=== PATIENT | male | born 1950 | race Caucasian/White ===

== ENCOUNTER 2021-08-13 07:19 | Inpatient (IN) | payer OTHER, BC ==
[2021-08-13 07:29] VITALS: BMI 26.9
[2021-08-13] MEDS ORDERED: ALBUTEROL SO4 2.5/IPRATROPIUM 0.5 INH SOL 3 ML VIAL.NEB. NEB ONE (07:34)
[2021-08-13 08:49] LABS: VENOUS BASE EXCESS -4.5 mmol/L (-2-2); VENOUS O2 SATURATION 77.7 % (70-80); VENOUS PCO2 39.9 mmHg (38-52); VENOUS PH 7.338 (7.310-7.410)
[2021-08-13 08:56] LABS: BASO % 1.2 % (0-2.0); HEMATOCRIT 31.9 % (35.4-49); HEMOGLOBIN 10.3 GM/dL (11.7-16.9); LYMPH % 7.3 % (8-40); MCHC 32.1 g/dl (32.0-35.9); MEAN CELL VOLUME 84.1 fl (80-96); MEAN PLT VOLUME 8.5 fl (7.5-11.1); MONO % 4.9 % (3.8-10.2); NEUT % 85.6 % (42.8-82.8); PLATELET COUNT 399 10^3/uL (134-434); RDW 16.9 % (11.9-15.9); WHITE BLOOD COUNT 11.5 K/mm3 (4.0-10.0)
[2021-08-13 09:06] LABS: CHLORIDE 96 mmol/L (98-107); SODIUM 128 mmol/L (136-145)
[2021-08-13 09:11] LABS: ALBUMIN 3.8 g/dl (3.4-5.0); ANION GAP 11 MMOL/L (8-16); BLOOD UREA NITROGEN 14.2 mg/dL (7-18); CALCIUM 9.1 mg/dL (8.5-10.1); CO2 22 mmol/L (21-32); GLUCOSE,RANDOM 132 mg/dL (74-106)
[2021-08-13 09:14] LABS: CREATININE 1.2 mg/dL (0.55-1.3); SGOT/AST 23 U/L (15-37); SGPT/ALT 24 U/L (13-61)
[2021-08-13 09:16] LABS: BILIRUBIN,TOTAL 0.6 mg/dL (0.2-1); TOT PROT 7.6 g/dl (6.4-8.2)
[2021-08-13 09:17] LABS: ALK PHOS 103 U/L (45-117)
[2021-08-13] MEDS ORDERED: AZITHROMYCIN IVPB 500 MG in DEXTROSE 5%-WATER - 250 ML IVPB ONE (09:19)
[2021-08-13] MEDS ORDERED: CEFTRIAXONE 1,000 MG in DEXTROSE 5%-WATER - 50 ML IVPB ONE (09:19)
[2021-08-13 09:20] LABS: N-TERMINAL BNP 3982.9 pg/ml (5-125)
[2021-08-13] MEDS ORDERED: CEFTRIAXONE 1 GM/50 ML BAG ONE (09:24)
[2021-08-13] MEDS ORDERED: AZITHROMYCIN IVPB 500 MG/250 ML BAG IVPB ONE (09:25)
[2021-08-13] MEDS ORDERED: ALBUTEROL SO4 0.083% IH SOL 2.5 MG/3 ML VIAL.NEB. NEB ONE ×2 (10:42→11:40)
[2021-08-13] MEDS ORDERED: METOPROLOL TARTRATE 50 MG TABLET (FP) PO SCH ×3 (18:50→22:00)
[2021-08-13] MEDS: METOPROLOL TARTRATE 25 MG TABLET (FP) PO SCH (20:23)
[2021-08-13] MEDS: ALBUTEROL SO4 0.083% IH SOL 2.5 MG/3 ML VIAL.NEB. NEB PRN (20:46)
[2021-08-13] MEDS: ATORVASTATIN CA 20 MG TABLET (FP) PO SCH (21:16)
[2021-08-13] MEDS: APIXABAN 5 MG TABLET PO SCH (21:16)
[2021-08-14] MEDS: methylPREDNISolone NA SUCC 40 MG/1 ML VIAL IVPUSH SCH ×3 (02:09→17:24)
[2021-08-14 07:28] LABS: CHLORIDE 96 mmol/L (98-107); SODIUM 129 mmol/L (136-145)
[2021-08-14 07:31] LABS: ALBUMIN 3.6 g/dl (3.4-5.0); ANION GAP 10 MMOL/L (8-16); BLOOD UREA NITROGEN 18.7 mg/dL (7-18); CALCIUM 9.2 mg/dL (8.5-10.1); CO2 22 mmol/L (21-32)
[2021-08-14 07:32] LABS: GLUCOSE,RANDOM 143 mg/dL (74-106)
[2021-08-14 07:34] LABS: CREATININE 1.1 mg/dL (0.55-1.3)
[2021-08-14 07:35] LABS: SGOT/AST 19 U/L (15-37); SGPT/ALT 19 U/L (13-61)
[2021-08-14 07:36] LABS: BILIRUBIN,TOTAL 0.6 mg/dL (0.2-1)
[2021-08-14 07:37] LABS: ALK PHOS 86 U/L (45-117)
[2021-08-14] MEDS ORDERED: DEXTROSE 5%-WATER - 50 ML IVPB ONE (09:35)
[2021-08-14] MEDS ORDERED: cefTRIAXone SODIUM 1 GM VIAL ONE (09:35)
[2021-08-14] MEDS ORDERED: UMECLIDINIUM/VILANTEROL (ANORO) 62.5/25 MCG INHALER IH SCH (10:00)
[2021-08-14] MEDS: METOPROLOL TARTRATE 25 MG TABLET (FP) PO SCH ×2 (10:04→22:00)
[2021-08-14] MEDS: CEFTRIAXONE 1 GM in DEXTROSE 5%-WATER - 50 ML IVPB SCH (10:04)
[2021-08-14] MEDS: LISINOPRIL 20 MG TABLET PO SCH (10:04)
[2021-08-14] MEDS: PANTOPRAZOLE 20 MG TABLET PO SCH (10:04)
[2021-08-14] MEDS: amLODIPine BESYLATE 10 MG TABLET (FP) PO SCH (10:04)
[2021-08-14] MEDS: AZITHROMYCIN 250 MG TABLET PO SCH (10:04)
[2021-08-14] MEDS: APIXABAN 5 MG TABLET PO SCH ×2 (10:04→22:00)
[2021-08-14] MEDS: SODIUM CHLORIDE 1 GM TABLET PO SCH ×2 (12:41→22:00)
[2021-08-14] MEDS: TIOTROPIUM BROMIDE 2.5 MCG (SPIRIVA) RESPIMAT INHALER IH SCH (17:24)
[2021-08-14] MEDS: ALBUTEROL SO4 0.083% IH SOL 2.5 MG/3 ML VIAL.NEB. NEB PRN (20:30)
[2021-08-14] MEDS: ATORVASTATIN CA 20 MG TABLET (FP) PO SCH (22:00)
[2021-08-14] MEDS: BUDESONIDE/FORMETEROL FUMARATE 160/4.5 mcg INHALER IH SCH (22:08)
[2021-08-15] MEDS: methylPREDNISolone NA SUCC 40 MG/1 ML VIAL IVPUSH SCH ×3 (02:37→21:23)
[2021-08-15] MEDS ORDERED: DEXTROSE 5%-WATER - 50 ML IVPB ONE (08:08)
[2021-08-15] MEDS ORDERED: cefTRIAXone SODIUM 1 GM VIAL ONE (08:08)
[2021-08-15] MEDS: SODIUM CHLORIDE 1 GM TABLET PO SCH ×2 (09:17→21:23)
[2021-08-15] MEDS: AZITHROMYCIN 250 MG TABLET PO SCH (09:17)
[2021-08-15] MEDS: PANTOPRAZOLE 20 MG TABLET PO SCH (09:17)
[2021-08-15] MEDS: CEFTRIAXONE 1 GM in DEXTROSE 5%-WATER - 50 ML IVPB SCH (09:17)
[2021-08-15] MEDS: APIXABAN 5 MG TABLET PO SCH ×2 (09:17→21:23)
[2021-08-15] MEDS: amLODIPine BESYLATE 10 MG TABLET (FP) PO SCH (09:18)
[2021-08-15] MEDS: LISINOPRIL 20 MG TABLET PO SCH (09:18)
[2021-08-15] MEDS: TIOTROPIUM BROMIDE 2.5 MCG (SPIRIVA) RESPIMAT INHALER IH SCH (09:18)
[2021-08-15] MEDS: METOPROLOL TARTRATE 25 MG TABLET (FP) PO SCH ×2 (09:18→21:23)
[2021-08-15] MEDS: BUDESONIDE/FORMETEROL FUMARATE 160/4.5 mcg INHALER IH SCH ×2 (09:18→21:30)
[2021-08-15] MEDS ORDERED: ALBUTEROL SO4 HFA INHALER IH PRN (14:49)
[2021-08-15] MEDS: ATORVASTATIN CA 20 MG TABLET (FP) PO SCH (21:23)
[2021-08-16] MEDS ORDERED: DEXTROSE 5%-WATER - 50 ML IVPB ONE (08:31)
[2021-08-16] MEDS ORDERED: cefTRIAXone SODIUM 1 GM VIAL ONE (08:31)
[2021-08-16] MEDS: AZITHROMYCIN 250 MG TABLET PO SCH (10:17)
[2021-08-16] MEDS: CEFTRIAXONE 1 GM in DEXTROSE 5%-WATER - 50 ML IVPB SCH (10:17)
[2021-08-16] MEDS: METOPROLOL TARTRATE 25 MG TABLET (FP) PO SCH (10:18)
[2021-08-16] MEDS: methylPREDNISolone NA SUCC 40 MG/1 ML VIAL IVPUSH SCH (10:18)
[2021-08-16] MEDS: PANTOPRAZOLE 20 MG TABLET PO SCH (10:18)
[2021-08-16] MEDS: LISINOPRIL 20 MG TABLET PO SCH (10:18)
[2021-08-16] MEDS: SODIUM CHLORIDE 1 GM TABLET PO SCH (10:18)
[2021-08-16] MEDS: APIXABAN 5 MG TABLET PO SCH (10:19)
[2021-08-16] MEDS: TIOTROPIUM BROMIDE 2.5 MCG (SPIRIVA) RESPIMAT INHALER IH SCH (10:19)
[2021-08-16] MEDS: BUDESONIDE/FORMETEROL FUMARATE 160/4.5 mcg INHALER IH SCH (10:20)
[2021-08-16 10:58] LABS: BASO % 0.1 % (0-2.0); HEMATOCRIT 30.2 % (35.4-49); HEMOGLOBIN 9.6 GM/dL (11.7-16.9); LYMPH % 9.5 % (8-40); MCH 26.1 pg (25.7-33.7); MCHC 31.8 g/dl (32.0-35.9); MEAN CELL VOLUME 82.2 fl (80-96); MEAN PLT VOLUME 8.4 fl (7.5-11.1); MONO % 10.2 % (3.8-10.2); NEUT % 80.2 % (42.8-82.8); PLATELET COUNT 347 10^3/uL (134-434); RBC 3.68 M/mm3 (4.00-5.60); WHITE BLOOD COUNT 6.7 K/mm3 (4.0-10.0)
[2021-08-16 11:19] LABS: CALCIUM 9.8 mg/dL (8.5-10.1)
[2021-08-16 11:20] LABS: ALBUMIN 3.8 g/dl (3.4-5.0); BLOOD UREA NITROGEN 28.7 mg/dL (7-18)
[2021-08-16 11:23] LABS: CREATININE 1.3 mg/dL (0.55-1.3)
[2021-08-16 11:24] LABS: TOT PROT 7.4 g/dl (6.4-8.2)
[2021-08-16 11:25] LABS: BILIRUBIN,TOTAL 0.5 mg/dL (0.2-1)
[2021-08-16 15:32] VITALS: BP 141/85; PULSE 72; TEMP 98.4
[2021-08-17] MEDS ORDERED: predniSONE 20 MG TABLET (UD) PO SCH (10:00)
[2021-08-17] MEDS ORDERED: SODIUM CHLORIDE 1 GM TABLET PO SCH (10:00)
== END 2021-08-16 18:09 | disposition home or self-care (01) | DRG 193 ==
LOC: JER 07:19 → JERBED 09:43 → J4W 16:35
PROVIDERS: ADMIT Internal Medicine; ATTEND Internal Medicine
DX: J18.9 Pneumonia, unspecified organism (principal); J96.01 Acute respiratory failure with hypoxia; I48.19 Other persistent atrial fibrillation; E87.1 Hypo-osmolality and hyponatremia; J44.1 Chronic obstructive pulmonary disease with (acute) exacerbation; F10.20 Alcohol dependence, uncomplicated; I25.10 Atherosclerotic heart disease of native coronary artery without angina pectoris; I10 Essential (primary) hypertension; E78.5 Hyperlipidemia, unspecified; Z98.61 Coronary angioplasty status; K21.9 Gastro-esophageal reflux disease without esophagitis; G47.33 Obstructive sleep apnea (adult) (pediatric); R91.1 Solitary pulmonary nodule
CPT/HCPCS: 36415; 71045-TC-FY; 71260-TC; 80053; 82436; 82550; 82803; 83735; 83880; 83930; 83935; 84133; 84300; 84443; 84484; 85025; 85379; 86140; 87804; 93005; 93010; 94640; 94761; 99285-25; C9803; U0003; U0005

== ENCOUNTER 2021-10-15 18:42 | Inpatient (IN) | payer OTHER, BC ==
[2021-10-15 20:43] LABS: BASO % 0.8 % (0-2.0); EOS % 1.5 % (0-4.5); HEMATOCRIT 32.7 % (35.4-49); HEMOGLOBIN 10.4 GM/dL (11.7-16.9); LYMPH % 14.2 % (8-40); MCH 24.6 pg (25.7-33.7); MCHC 31.8 g/dl (32.0-35.9); MEAN CELL VOLUME 77.4 fl (80-96); MEAN PLT VOLUME 7.7 fl (7.5-11.1); MONO % 12.4 % (3.8-10.2); NEUT % 71.1 % (42.8-82.8); PLATELET COUNT 311 10^3/uL (134-434); RBC 4.22 M/mm3 (4.00-5.60); RDW 18.3 % (11.9-15.9); WHITE BLOOD COUNT 9.1 K/mm3 (4.0-10.0)
[2021-10-15 20:50] LABS: INR 1.49 (0.83-1.09); PROTHROMBIN TIME (PATIENT) 17.2 SEC (9.7-13.0)
[2021-10-15 20:58] LABS: ALBUMIN 3.4 g/dl (3.4-5.0); CALCIUM 8.7 mg/dL (8.5-10.1)
[2021-10-15 20:59] LABS: BLOOD UREA NITROGEN 13.6 mg/dL (7-18)
[2021-10-15 21:01] LABS: CREATININE 0.9 mg/dL (0.55-1.3)
[2021-10-15 21:03] LABS: BILIRUBIN,TOTAL 1.6 mg/dL (0.2-1); TOT PROT 6.1 g/dl (6.4-8.2)
[2021-10-15] MEDS ORDERED: SODIUM CHLORIDE 0.9% 1000 ML INFUS.BAG IV ONE (21:16)
[2021-10-15 22:49] LABS: ACTIVATED PTT 28.4 SECONDS (25.2-36.5)
[2021-10-16] MEDS ORDERED: APIXABAN 5 MG TABLET PO ONE (00:05)
[2021-10-16] MEDS ORDERED: APIXABAN 5 MG TABLET ONE (00:19)
[2021-10-16] MEDS ORDERED: HEPARIN NA (PORCINE) 5,000 UNITS/ML 1ML VIAL IVPUSH PRN ×3 (00:38)
[2021-10-16] MEDS ORDERED: HEPARIN - 25,000 UNIT in SODIUM CHLORIDE 495 ML IV SCH (00:45)
[2021-10-16] MEDS ORDERED: HEPARIN INFUSION - 25,000 UNITS/500 ML INFUS.BAG IVPB ONE (01:11)
[2021-10-16] MEDS ORDERED: HEPARIN NA (PORCINE) 5,000 UNITS/ML 1ML VIAL ONE ×2 (01:22→15:52)
[2021-10-16 06:55] VITALS: BMI 25.0
[2021-10-16 09:47] LABS: ALBUMIN 3.3 g/dl (3.4-5.0); BILIRUBIN,TOTAL 1.6 mg/dL (0.2-1); BLOOD UREA NITROGEN 9.7 mg/dL (7-18); CALCIUM 8.6 mg/dL (8.5-10.1); CREATININE 0.8 mg/dL (0.55-1.3); TOT PROT 5.8 g/dl (6.4-8.2)
[2021-10-16] MEDS ORDERED: LISINOPRIL 20 MG TABLET PO SCH (10:00)
[2021-10-16] MEDS ORDERED: METOPROLOL SUCCINATE 100 MG, METOPROLOL SUCCINATE 50 MG PO SCH (10:00)
[2021-10-16] MEDS ORDERED: FLUTICASONE/UMECLIDIN/VILANTER(100-62.5-25 TRELEGY ELLIPTA) INAHLER IH SCH (10:00)
[2021-10-16] MEDS ORDERED: LIDOCAINE HCL 1%, 10 MG/ML (20ML VIAL) ONE (15:51)
[2021-10-16] MEDS ORDERED: ACETAMINOPHEN INJECTION 100 ML IVPB ONE (17:07)
[2021-10-16] MEDS ORDERED: DEXMEDETOMIDINE HCL 200 MCG/2 ML IVPB ONE (17:07)
[2021-10-16] MEDS ORDERED: ceFAZolin SODIUM 1 GM VIAL IVPB ONE (17:15)
[2021-10-16] MEDS ORDERED: PROPOFOL 20 ML ONE (17:19)
[2021-10-16] MEDS ORDERED: MIDAZOLAM HCL 2 MG/2 ML SINGLE DOSE VIAL ONE (17:42)
[2021-10-16] MEDS ORDERED: ONDANSETRON 4 MG/2 ML VIAL IVPUSH PRN (19:21)
[2021-10-16] MEDS: APIXABAN 5 MG TABLET PO SCH (21:52)
[2021-10-16] MEDS ORDERED: ATORVASTATIN CA 40 MG TABLET (FP) PO SCH (22:00)
[2021-10-17 06:27] VITALS: BP 137/66; PULSE 77; TEMP 97.6
[2021-10-17] MEDS: APIXABAN 5 MG TABLET PO SCH (09:07)
[2021-10-17] MEDS ORDERED: LISINOPRIL 20 MG TABLET PO SCH (10:00)
[2021-10-17] MEDS ORDERED: METOPROLOL SUCCINATE 100 MG, METOPROLOL SUCCINATE 50 MG PO SCH (10:00)
[2021-10-17] MEDS ORDERED: FLUTICASONE/UMECLIDIN/VILANTER(100-62.5-25 TRELEGY ELLIPTA) INAHLER IH SCH (10:00)
== END 2021-10-17 10:54 | disposition home or self-care (01) | DRG 271 ==
LOC: JER 18:42 → JERBED 10-16 01:01 → J8W 10-16 05:46
PROVIDERS: ADMIT Internal Medicine; ATTEND Internal Medicine
PROC: 047L34Z Dilation of Left Femoral Artery with Drug-eluting Intraluminal Device, Percutaneous Approach (ICD-10-PCS; 2021-10-16)
PROC: B41DZZZ Fluoroscopy of Aorta and Bilateral Lower Extremity Arteries (ICD-10-PCS; 2021-10-16)
PROC: 3E05317 Introduction of Other Thrombolytic into Peripheral Artery, Percutaneous Approach (ICD-10-PCS; 2021-10-16)
PROC: 04CL3ZZ Extirpation of Matter from Left Femoral Artery, Percutaneous Approach (ICD-10-PCS; principal; 2021-10-16 15:00)
DX: I73.9 Peripheral vascular disease, unspecified (principal); I74.3 Embolism and thrombosis of arteries of the lower extremities; F10.20 Alcohol dependence, uncomplicated; J44.9 Chronic obstructive pulmonary disease, unspecified; K76.0 Fatty (change of) liver, not elsewhere classified; I48.0 Paroxysmal atrial fibrillation; E78.00 Pure hypercholesterolemia, unspecified; E78.5 Hyperlipidemia, unspecified; I25.10 Atherosclerotic heart disease of native coronary artery without angina pectoris; K21.9 Gastro-esophageal reflux disease without esophagitis; R91.1 Solitary pulmonary nodule; Z98.61 Coronary angioplasty status; R74.01 Elevation of levels of liver transaminase levels; I11.9 Hypertensive heart disease without heart failure; I77.1 Stricture of artery
CPT/HCPCS: 36415; 75635-TC; 76000-TC-FY; 76705-TC; 80053; 82962; 85025; 85610; 85730; 93005; 93010; 93970-TC; 94760; 99285-25; C9803-CS; J1644; Q9967; U0003; U0005

== ENCOUNTER 2021-11-14 04:21 | Day surgery (SDC) | payer OTHER, BC ==
[2021-11-12 14:53] VITALS: BMI 25.0
[2021-11-14] MEDS ORDERED: NITROGLYCERIN 50 MG/10 ML VIAL IVPB ONE (07:36)
[2021-11-14] MEDS ORDERED: HEPARIN NA (PORCINE) 5,000 UNITS/ML 1ML VIAL ONE (07:36)
[2021-11-14] MEDS ORDERED: LIDOCAINE HCL 1%, 10 MG/ML (20ML VIAL) NR ONE ×3 (07:43→09:32)
[2021-11-14] MEDS ORDERED: HEPARIN NA (PORCINE) 5,000 UNITS/ML 1ML VIAL SQ ONE ×3 (07:44→09:40)
[2021-11-14] MEDS ORDERED: IOVERSOL 320 MG/ML ML IV ONE ×3 (07:45→09:56)
[2021-11-14] MEDS ORDERED: DEXMEDETOMIDINE HCL 200 MCG/2 ML IVPB ONE (08:50)
[2021-11-14] MEDS ORDERED: MIDAZOLAM HCL 2 MG/2 ML SINGLE DOSE VIAL ONE (09:13)
[2021-11-14] MEDS ORDERED: ceFAZolin SODIUM 1 GM VIAL IVPB ONE (09:30)
[2021-11-14] MEDS ORDERED: SUCCINYLCHOLINE CHLORIDE 200 MG/10 ML SYRINGE ONE ×2 (09:33→09:58)
[2021-11-14] MEDS ORDERED: PROPOFOL 20 ML ONE ×5 (09:33→10:02)
[2021-11-14] MEDS ORDERED: PROMETHAZINE HCL 25 MG/1 ML VIAL IVPUSH PRN (12:12)
[2021-11-14] MEDS ORDERED: oxyCODONE HCL 5 MG TABLET PO PRN (12:12)
[2021-11-14] MEDS ORDERED: ONDANSETRON 4 MG/2 ML VIAL IVPUSH PRN (12:12)
[2021-11-14] MEDS ORDERED: LACTATED RINGERS SOLUTION 1,000 ML IV SCH (12:15)
[2021-11-14 14:56] VITALS: BP 121/65; PULSE 68; TEMP 98
== END 2021-11-14 14:00 | disposition home or self-care (01) ==
LOC: JASU-SURG 04:21
PROVIDERS: ATTEND Surgery Vascular Surgery
PROC: 047K3DZ Dilation of Right Femoral Artery with Intraluminal Device, Percutaneous Approach (ICD-10-PCS; principal; 2021-11-14 09:00)
DX: I70.211 Atherosclerosis of native arteries of extremities with intermittent claudication, right leg (principal)
CPT/HCPCS: 37227; C1877; 76000-TC-FY; 94760; J1644

== ENCOUNTER 2022-08-20 12:09 | Observation (INO) | payer OTHER, BC ==
[2022-08-20 14:09] LABS: BASO % 1.3 % (0-2.0); HEMATOCRIT 33.3 % (35.4-49); HEMOGLOBIN 10.7 GM/dL (11.7-16.9); LYMPH % 17.6 % (8-40); MCHC 31.9 g/dl (32.0-35.9); MEAN CELL VOLUME 78.1 fl (80-96); MEAN PLT VOLUME 7.6 fl (7.5-11.1); MONO % 12.5 % (3.8-10.2); NEUT % 67.6 % (42.8-82.8); PLATELET COUNT 479 10^3/uL (134-434); RBC 4.27 M/mm3 (4.00-5.60); RDW 17.7 % (11.9-15.9); WHITE BLOOD COUNT 11.4 K/mm3 (4.0-10.0)
[2022-08-20] MEDS: ALBUTEROL SO4 2.5/IPRATROPIUM 0.5 INH SOL 3 ML VIAL.NEB. NEB SCH ×3 (14:15→14:50)
[2022-08-20 14:16] LABS: INR 1.53 (0.83-1.09); PROTHROMBIN TIME (PATIENT) 17.7 SEC (9.7-13.0)
[2022-08-20 14:19] LABS: ACTIVATED PTT 35.4 SECONDS (25.2-36.5)
[2022-08-20 14:56] LABS: ALBUMIN 3.7 g/dl (3.4-5.0); BLOOD UREA NITROGEN 20.2 mg/dL (7-18); CALCIUM 9.9 mg/dL (8.5-10.1); MAGNESIUM 1.7 mg/dL (1.8-2.4)
[2022-08-20 14:59] LABS: CREATININE 1.4 mg/dL (0.55-1.3); PHOSPHOROUS 3.6 mg/dL (2.5-4.9)
[2022-08-20] MEDS ORDERED: SODIUM CHLORIDE 0.9% 500 ML INFUS.BAG IV ONE (14:59)
[2022-08-20 15:01] LABS: BILIRUBIN,TOTAL 0.5 mg/dL (0.2-1); TOT PROT 7.4 g/dl (6.4-8.2)
[2022-08-20 17:57] VITALS: BMI 26.8
[2022-08-20] MEDS: LISINOPRIL 20 MG TABLET PO SCH (18:22)
[2022-08-20] MEDS: MAGNESIUM OXIDE 400 MG TABLET (FP) PO SCH (22:11)
[2022-08-20] MEDS: THIAMINE HCL 100 MG TABLET (FP) PO SCH (22:11)
[2022-08-20] MEDS: APIXABAN 5 MG TABLET PO SCH (22:11)
[2022-08-21 09:05] LABS: URINE APPEARANCE CLEAR; URINE BILIRUBIN NEGATIVE (NEGATIVE); URINE COLOR YELLOW; URINE GLUCOSE (UA) NEGATIVE (NEGATIVE); URINE KETONE NEGATIVE (NEGATIVE); URINE LEUK ESTERASE NEGATIVE (NEGATIVE); URINE NITRITE NEGATIVE (NEGATIVE); URINE PROTEIN NEGATIVE (NEGATIVE); URINE UROBILINOGEN 0.2 mg/dL (0.2-1.0)
[2022-08-21] MEDS: APIXABAN 5 MG TABLET PO SCH ×2 (09:32→22:13)
[2022-08-21] MEDS: LISINOPRIL 20 MG TABLET PO SCH (09:32)
[2022-08-21] MEDS: FOLIC ACID 1 MG TABLET (FP) PO SCH (09:33)
[2022-08-21] MEDS: PYRIDOXINE HCL (B-6) 50 MG TABLET (FP) PO SCH (09:33)
[2022-08-21] MEDS: MAGNESIUM OXIDE 400 MG TABLET (FP) PO SCH ×2 (09:33→22:14)
[2022-08-21] MEDS: THIAMINE HCL 100 MG TABLET (FP) PO SCH (22:13)
[2022-08-22] MEDS: FOLIC ACID 1 MG TABLET (FP) PO SCH (09:25)
[2022-08-22] MEDS: APIXABAN 5 MG TABLET PO SCH (09:25)
[2022-08-22] MEDS: LISINOPRIL 20 MG TABLET PO SCH (09:25)
[2022-08-22] MEDS: MAGNESIUM OXIDE 400 MG TABLET (FP) PO SCH (09:25)
[2022-08-22] MEDS: PYRIDOXINE HCL (B-6) 50 MG TABLET (FP) PO SCH (09:26)
[2022-08-22 16:47] VITALS: BP 120/58; PULSE 73; RESP 18; TEMP 98
== END 2022-08-22 17:54 | disposition home or self-care (01) ==
LOC: JER 12:09 → UNDOADMOB 14:22 → INTOOBSV 14:22 → JERBED 14:22 → J8W 17:36 → JERBED 17:36 → J8W 18:02
PROVIDERS: ADMIT Internal Medicine; ATTEND Internal Medicine
PROC: 3E0F7GC Introduction of Other Therapeutic Substance into Respiratory Tract, Via Natural or Artificial Opening (ICD-10-PCS; principal; 2022-08-20)
PROC: 3E0337Z Introduction of Electrolytic and Water Balance Substance into Peripheral Vein, Percutaneous Approach (ICD-10-PCS; 2022-08-20)
DX: R26.9 Unspecified abnormalities of gait and mobility (principal); I25.119 Atherosclerotic heart disease of native coronary artery with unspecified angina pectoris; Z79.01 Long term (current) use of anticoagulants; I5A Non-ischemic myocardial injury (non-traumatic); R42 Dizziness and giddiness; E78.00 Pure hypercholesterolemia, unspecified; J44.9 Chronic obstructive pulmonary disease, unspecified; I10 Essential (primary) hypertension; F17.210 Nicotine dependence, cigarettes, uncomplicated
CPT/HCPCS: 0241U-QW; 36415; 70450-TC; 70496-TC; 70498-TC; 70551-TC; 71045-TC-FY; 80053; 81003; 83735; 84100; 84484; 85025; 85610; 85730; 87086; 93005; 93010; 94640; 97116-GP; 97161-GP; 99285-25; G0378

== ENCOUNTER 2022-10-21 02:38 | Inpatient (IN) | payer OTHER, BC ==
[2022-10-21 03:41] LABS: VENOUS BASE EXCESS -5.5 mmol/L (-2-2); VENOUS O2 SATURATION 53.4 % (70-80); VENOUS PCO2 36.8 mmHg (38-52); VENOUS PH 7.345 (7.310-7.410)
[2022-10-21 03:43] LABS: BASO % 0.2 % (0-2.0); EOS % 0.1 % (0-4.5); HEMATOCRIT 24.9 % (35.4-49); LYMPH % 7.4 % (8-40); MCH 23.8 pg (25.7-33.7); MCHC 32.1 g/dl (32.0-35.9); MEAN CELL VOLUME 74.1 fl (80-96); MEAN PLT VOLUME 7.5 fl (7.5-11.1); MONO % 8.3 % (3.8-10.2); PLATELET COUNT 389 10^3/uL (134-434); RBC 3.37 M/mm3 (4.00-5.60); RDW 17.8 % (11.9-15.9); WHITE BLOOD COUNT 15.5 K/mm3 (4.0-10.0)
[2022-10-21 03:48] LABS: INR 2.44 (0.83-1.09)
[2022-10-21 03:50] LABS: ACTIVATED PTT 27.7 SECONDS (25.2-36.5)
[2022-10-21 04:07] LABS: CHLORIDE 80 mmol/L (98-107)
[2022-10-21 04:10] LABS: ALBUMIN 3.3 g/dl (3.4-5.0); BLOOD UREA NITROGEN 28.3 mg/dL (7-18); CALCIUM 8.9 mg/dL (8.5-10.1); CO2 20 mmol/L (21-32); GLUCOSE,RANDOM 71 mg/dL (74-106)
[2022-10-21 04:13] LABS: CREATININE 1.4 mg/dL (0.55-1.3); SGPT/ALT 74 U/L (13-61)
[2022-10-21] MEDS: ALBUTEROL SO4 2.5/IPRATROPIUM 0.5 INH SOL 3 ML VIAL.NEB. NEB SCH ×3 (04:13→05:12)
[2022-10-21 04:14] LABS: SGOT/AST 125 U/L (15-37)
[2022-10-21 04:15] LABS: BILIRUBIN,TOTAL 0.7 mg/dL (0.2-1); TOT PROT 6.4 g/dl (6.4-8.2)
[2022-10-21 04:16] LABS: ALK PHOS 86 U/L (45-117)
[2022-10-21 04:30] LABS: ANION GAP 14 MMOL/L (8-16); N-TERMINAL BNP 30711.2 pg/ml (5-125); SODIUM 114 mmol/L (136-145)
[2022-10-21] MEDS ORDERED: FUROSEMIDE 40 MG/4 ML INJECTABLE VIAL IVPUSH ONE (04:58)
[2022-10-21] MEDS ORDERED: FUROSEMIDE 40 MG/4 ML INJECTABLE VIAL ONE (05:29)
[2022-10-21 07:23] LABS: CHLORIDE 80 mmol/L (98-107)
[2022-10-21 07:24] LABS: CALCIUM 9.1 mg/dL (8.5-10.1)
[2022-10-21 07:25] LABS: CO2 20 mmol/L (21-32); GLUCOSE,RANDOM 97 mg/dL (74-106)
[2022-10-21 07:28] LABS: CREATININE 1.3 mg/dL (0.55-1.3)
[2022-10-21 07:30] LABS: ANION GAP 15 MMOL/L (8-16); SODIUM 116 mmol/L (136-145)
[2022-10-21] MEDS ORDERED: FUROSEMIDE 40 MG TABLET (FP) PO ONE (08:25)
[2022-10-21] MEDS ORDERED: SODIUM CHLORIDE 0.9% 1000 ML INFUS.BAG IV ONE (08:25)
[2022-10-21] MEDS ORDERED: FUROSEMIDE 40 MG TABLET (FP) ONE (09:15)
[2022-10-21] MEDS ORDERED: ALBUTEROL SO4 HFA INHALER IH PRN (11:30)
[2022-10-21 13:49] LABS: CHLORIDE 80 mmol/L (98-107)
[2022-10-21 13:51] LABS: BLOOD UREA NITROGEN 28.8 mg/dL (7-18); CALCIUM 9.4 mg/dL (8.5-10.1); CO2 24 mmol/L (21-32); GLUCOSE,RANDOM 91 mg/dL (74-106)
[2022-10-21 13:54] LABS: CREATININE 1.4 mg/dL (0.55-1.3)
[2022-10-21 14:07] LABS: ANION GAP 11 MMOL/L (8-16); SODIUM 116 mmol/L (136-145)
[2022-10-21] MEDS ORDERED: SODIUM CHLORIDE 500 ML IV STA (15:44)
[2022-10-21] MEDS ORDERED: SODIUM CHLORIDE 1,000 ML IV SCH (17:00)
[2022-10-21 17:03] LABS: CHLORIDE 81 mmol/L (98-107)
[2022-10-21 17:05] LABS: ALBUMIN 3.4 g/dl (3.4-5.0); BLOOD UREA NITROGEN 28.2 mg/dL (7-18); CALCIUM 9.4 mg/dL (8.5-10.1); CO2 25 mmol/L (21-32)
[2022-10-21 17:06] LABS: GLUCOSE,RANDOM 129 mg/dL (74-106)
[2022-10-21 17:08] LABS: CREATININE 1.5 mg/dL (0.55-1.3); SGPT/ALT 80 U/L (13-61)
[2022-10-21 17:09] LABS: SGOT/AST 133 U/L (15-37)
[2022-10-21 17:10] LABS: BILIRUBIN,TOTAL 0.9 mg/dL (0.2-1); TOT PROT 6.4 g/dl (6.4-8.2)
[2022-10-21 17:11] LABS: ALK PHOS 85 U/L (45-117)
[2022-10-21 17:12] LABS: ANION GAP 13 MMOL/L (8-16); SODIUM 119 mmol/L (136-145)
[2022-10-21 17:45] VITALS: BMI 28.4
[2022-10-21] MEDS: LISINOPRIL 20 MG TABLET PO SCH (17:48)
[2022-10-21] MEDS: PANTOPRAZOLE 20 MG TABLET PO SCH (17:48)
[2022-10-21] MEDS: APIXABAN 5 MG TABLET PO SCH ×2 (17:51→22:00)
[2022-10-21] MEDS: FLUTICASONE/UMECLIDIN/VILANTER(200-62.5-25 TRELEGY ELLIPTA) INAHLER IH SCH (17:53)
[2022-10-21 18:18] LABS: CHOLESTEROL 136 mg/dL (50-200)
[2022-10-21 18:20] LABS: LDL CHOLESTEROL (ONLY SJRH) 65 mg/dL (5-100)
[2022-10-21 18:21] LABS: HDL CHOLESTEROL 52 mg/dL (40-60)
[2022-10-21 19:47] LABS: URINE APPEARANCE CLEAR; URINE BILIRUBIN NEGATIVE (NEGATIVE); URINE COLOR YELLOW; URINE GLUCOSE (UA) NEGATIVE (NEGATIVE); URINE KETONE NEGATIVE (NEGATIVE); URINE LEUK ESTERASE NEGATIVE (NEGATIVE); URINE NITRITE NEGATIVE (NEGATIVE); URINE PROTEIN NEGATIVE (NEGATIVE); URINE UROBILINOGEN 0.2 mg/dL (0.2-1.0)
[2022-10-21 20:03] LABS: CHLORIDE 84 mmol/L (98-107)
[2022-10-21 20:04] LABS: CALCIUM 8.9 mg/dL (8.5-10.1)
[2022-10-21 20:05] LABS: BLOOD UREA NITROGEN 28.2 mg/dL (7-18); CO2 24 mmol/L (21-32); GLUCOSE,RANDOM 116 mg/dL (74-106)
[2022-10-21 20:08] LABS: CREATININE 1.5 mg/dL (0.55-1.3)
[2022-10-21 20:17] LABS: ANION GAP 10 MMOL/L (8-16); SODIUM 119 mmol/L (136-145)
[2022-10-21] MEDS: ATORVASTATIN CA 10 MG TABLET (FP) PO SCH (22:00)
[2022-10-21] MEDS: SODIUM CHLORIDE 1 GM TABLET PO SCH (22:01)
[2022-10-22 07:49] LABS: HEMOGLOBIN 8.6 GM/dL (11.7-16.9); MCH 25.8 pg (25.7-33.7); MCHC 34.4 g/dl (32.0-35.9); MEAN CELL VOLUME 75.2 fl (80-96); MEAN PLT VOLUME 7.8 fl (7.5-11.1); PLATELET COUNT 326 10^3/uL (134-434); RBC 3.33 M/mm3 (4.00-5.60); RDW 17.8 % (11.9-15.9)
[2022-10-22 08:03] LABS: CALCIUM 8.3 mg/dL (8.5-10.1)
[2022-10-22 08:04] LABS: ALBUMIN 2.9 g/dl (3.4-5.0); BLOOD UREA NITROGEN 20.9 mg/dL (7-18); MAGNESIUM 1.6 mg/dL (1.8-2.4)
[2022-10-22 08:07] LABS: CREATININE 1.2 mg/dL (0.55-1.3); PHOSPHOROUS 2.9 mg/dL (2.5-4.9)
[2022-10-22 08:08] LABS: TOT PROT 5.5 g/dl (6.4-8.2)
[2022-10-22 08:11] LABS: IRON SERUM 16 ug/dL (50-175); TOTAL IRON BINDING CAPACITY 341 ug/dL (250-450)
[2022-10-22] MEDS ORDERED: LORazepam 1 MG TABLET PO PRN ×2 (09:17→10:58)
[2022-10-22] MEDS ORDERED: DESMOPRESSIN ACETATE 4 MCG/ML AMP IVPB ONE (09:31)
[2022-10-22] MEDS: APIXABAN 5 MG TABLET PO SCH ×2 (09:51→21:03)
[2022-10-22] MEDS: SODIUM CHLORIDE 1 GM TABLET PO SCH (09:51)
[2022-10-22] MEDS: PANTOPRAZOLE 20 MG TABLET PO SCH (09:51)
[2022-10-22] MEDS: LISINOPRIL 20 MG TABLET PO SCH (09:51)
[2022-10-22] MEDS: FLUTICASONE/UMECLIDIN/VILANTER(200-62.5-25 TRELEGY ELLIPTA) INAHLER IH SCH (09:52)
[2022-10-22] MEDS ORDERED: MAGNESIUM SULF 50% (8.12 MEQ/2 ML-1 GM VIAL) IVPB ONE (10:15)
[2022-10-22] MEDS ORDERED: POTASSIUM CHLORIDE ORAL LIQUID 20 MEQ/15 ML PO ONE (10:15)
[2022-10-22] MEDS ORDERED: DESMOPRESSIN ACETATE 2 MCG in SODIUM CHLORIDE 50 ML IVPB ONE (11:00)
[2022-10-22] MEDS ORDERED: POTASSIUM CHLORIDE 40 MEQ in DEXTROSE 5%-WATER - 1,000 ML IV SCH (11:00)
[2022-10-22] MEDS ORDERED: MAGNESIUM OXIDE 400 MG TABLET (FP) PO ONE ×2 (11:16→20:00)
[2022-10-22] MEDS ORDERED: BENZOCAINE/MENTH/CETYLPYRD CL 1 EACH LOZENGE MM PRN ×2 (15:44→15:46)
[2022-10-22] MEDS ORDERED: MELATONIN 5 MG TABLETS PO PRN (15:46)
[2022-10-22] MEDS: ATORVASTATIN CA 10 MG TABLET (FP) PO SCH (21:03)
[2022-10-22] MEDS ORDERED: MELATONIN 5 MG TABLETS PO SCH (22:00)
[2022-10-23 07:40] LABS: BASO % 0.7 % (0-2.0); EOS % 0.9 % (0-4.5); HEMATOCRIT 23.8 % (35.4-49); HEMOGLOBIN 7.9 GM/dL (11.7-16.9); LYMPH % 8.2 % (8-40); MCH 24.6 pg (25.7-33.7); MCHC 33.2 g/dl (32.0-35.9); MEAN CELL VOLUME 74.3 fl (80-96); MEAN PLT VOLUME 7.6 fl (7.5-11.1); MONO % 10.7 % (3.8-10.2); NEUT % 79.5 % (42.8-82.8); PLATELET COUNT 300 10^3/uL (134-434); RDW 18.4 % (11.9-15.9); WHITE BLOOD COUNT 12.4 K/mm3 (4.0-10.0)
[2022-10-23 08:02] LABS: ALBUMIN 2.9 g/dl (3.4-5.0); BLOOD UREA NITROGEN 14.8 mg/dL (7-18); CALCIUM 8.5 mg/dL (8.5-10.1); MAGNESIUM 1.6 mg/dL (1.8-2.4)
[2022-10-23 08:05] LABS: PHOSPHOROUS 2.2 mg/dL (2.5-4.9)
[2022-10-23 08:06] LABS: BILIRUBIN,TOTAL 0.9 mg/dL (0.2-1); TOT PROT 5.6 g/dl (6.4-8.2)
[2022-10-23] MEDS ORDERED: MAGNESIUM SULF 50% (8.12 MEQ/2 ML-1 GM VIAL) IVPB ONE (08:09)
[2022-10-23] MEDS ORDERED: NAPH,MB-DB/K PH,MBDB POWDER PACKET PO ONE (08:11)
[2022-10-23] MEDS ORDERED: dilTIAZem HCL 25 MG/5 ML - 5 ML VIAL IV ONE (09:00)
[2022-10-23] MEDS: APIXABAN 5 MG TABLET PO SCH ×2 (09:11→21:45)
[2022-10-23] MEDS: PANTOPRAZOLE 20 MG TABLET PO SCH (09:11)
[2022-10-23] MEDS: LISINOPRIL 20 MG TABLET PO SCH (09:11)
[2022-10-23] MEDS: FLUTICASONE/UMECLIDIN/VILANTER(200-62.5-25 TRELEGY ELLIPTA) INAHLER IH SCH (09:12)
[2022-10-23] MEDS ORDERED: MULTIVITAMINS (DAILY MVI) TABLET (FP) PO ONE (11:55)
[2022-10-23] MEDS ORDERED: THIAMINE HCL 200 MG/2 ML VIAL IVPB SCH (12:00)
[2022-10-23] MEDS: FOLIC ACID 1 MG TABLET (FP) PO SCH (12:29)
[2022-10-23] MEDS ORDERED: ALPRAZolam 1 MG TABLET PO PRN (15:09)
[2022-10-23] MEDS ORDERED: ALPRAZolam 0.25 MG TABLET PO PRN (15:43)
[2022-10-23] MEDS ORDERED: ALPRAZolam 0.25 MG TABLET PO ONE (16:36)
[2022-10-23] MEDS ORDERED: ALBUTEROL SO4 2.5/IPRATROPIUM 0.5 INH SOL 3 ML VIAL.NEB. NEB PRN (18:36)
[2022-10-23] MEDS ORDERED: FUROSEMIDE 40 MG/4 ML INJECTABLE VIAL IVPUSH ONE (18:45)
[2022-10-23] MEDS: ATORVASTATIN CA 10 MG TABLET (FP) PO SCH (21:45)
[2022-10-23] MEDS: MELATONIN 5 MG TABLETS PO PRN (21:45)
[2022-10-24 08:13] LABS: HEMATOCRIT 26.6 % (35.4-49); HEMOGLOBIN 8.7 GM/dL (11.7-16.9); MCH 25.5 pg (25.7-33.7); MCHC 32.8 g/dl (32.0-35.9); MEAN PLT VOLUME 7.7 fl (7.5-11.1); PLATELET COUNT 317 10^3/uL (134-434); RBC 3.41 M/mm3 (4.00-5.60); RDW 18.7 % (11.9-15.9); WHITE BLOOD COUNT 12.8 K/mm3 (4.0-10.0)
[2022-10-24 08:36] LABS: ALBUMIN 3.1 g/dl (3.4-5.0); BLOOD UREA NITROGEN 11.8 mg/dL (7-18); MAGNESIUM 1.9 mg/dL (1.8-2.4)
[2022-10-24 08:39] LABS: CREATININE 1.1 mg/dL (0.55-1.3); PHOSPHOROUS 3.5 mg/dL (2.5-4.9)
[2022-10-24 08:40] LABS: CALCIUM 8.7 mg/dL (8.5-10.1)
[2022-10-24 08:41] LABS: BILIRUBIN,TOTAL 0.9 mg/dL (0.2-1); TOT PROT 6.2 g/dl (6.4-8.2)
[2022-10-24] MEDS: FOLIC ACID 1 MG TABLET (FP) PO SCH (09:15)
[2022-10-24] MEDS: APIXABAN 5 MG TABLET PO SCH ×2 (09:15→22:10)
[2022-10-24] MEDS: LISINOPRIL 20 MG TABLET PO SCH (09:15)
[2022-10-24] MEDS: PANTOPRAZOLE 20 MG TABLET PO SCH (09:15)
[2022-10-24] MEDS ORDERED: ALPRAZolam 0.25 MG TABLET PO ONE (10:35)
[2022-10-24] MEDS: FLUTICASONE/UMECLIDIN/VILANTER(200-62.5-25 TRELEGY ELLIPTA) INAHLER IH SCH (11:28)
[2022-10-24] MEDS: MULTIVITAMINS (DAILY MVI) TABLET (FP) PO SCH (11:28)
[2022-10-24] MEDS: THIAMINE HCL 100 MG TABLET (FP) PO SCH (11:28)
[2022-10-24] MEDS ORDERED: LORazepam 0.5 MG TABLET PO PRN (12:39)
[2022-10-24] MEDS: LORazepam 1 MG TABLET PO SCH ×2 (15:42→18:19)
[2022-10-24] MEDS: MELATONIN 5 MG TABLETS PO PRN (22:10)
[2022-10-24] MEDS: LORazepam 0.5 MG TABLET PO SCH (22:10)
[2022-10-24] MEDS: ATORVASTATIN CA 10 MG TABLET (FP) PO SCH (22:11)
[2022-10-25] MEDS: LORazepam 0.5 MG TABLET PO SCH ×4 (06:15→23:07)
[2022-10-25 07:18] LABS: BASO % 0.9 % (0-2.0); HEMATOCRIT 26.5 % (35.4-49); HEMOGLOBIN 8.6 GM/dL (11.7-16.9); LYMPH % 12.5 % (8-40); MCHC 32.6 g/dl (32.0-35.9); MEAN CELL VOLUME 76.8 fl (80-96); MEAN PLT VOLUME 7.3 fl (7.5-11.1); MONO % 11.7 % (3.8-10.2); NEUT % 72.9 % (42.8-82.8); PLATELET COUNT 321 10^3/uL (134-434); RBC 3.45 M/mm3 (4.00-5.60); RDW 18.5 % (11.9-15.9); WHITE BLOOD COUNT 11.3 K/mm3 (4.0-10.0)
[2022-10-25 07:54] LABS: CALCIUM 8.8 mg/dL (8.5-10.1)
[2022-10-25 07:55] LABS: BLOOD UREA NITROGEN 16.5 mg/dL (7-18)
[2022-10-25 07:58] LABS: CREATININE 1.1 mg/dL (0.55-1.3); PHOSPHOROUS 4.2 mg/dL (2.5-4.9)
[2022-10-25 07:59] LABS: BILIRUBIN,TOTAL 0.5 mg/dL (0.2-1)
[2022-10-25] MEDS: MULTIVITAMINS (DAILY MVI) TABLET (FP) PO SCH (10:30)
[2022-10-25] MEDS: FOLIC ACID 1 MG TABLET (FP) PO SCH (10:31)
[2022-10-25] MEDS: THIAMINE HCL 100 MG TABLET (FP) PO SCH (10:31)
[2022-10-25] MEDS: PANTOPRAZOLE 20 MG TABLET PO SCH (10:31)
[2022-10-25] MEDS: APIXABAN 5 MG TABLET PO SCH ×2 (10:34→23:08)
[2022-10-25] MEDS: FLUTICASONE/UMECLIDIN/VILANTER(200-62.5-25 TRELEGY ELLIPTA) INAHLER IH SCH (11:06)
[2022-10-25] MEDS: ALBUTEROL SO4 2.5/IPRATROPIUM 0.5 INH SOL 3 ML VIAL.NEB. NEB PRN ×2 (16:33→21:00)
[2022-10-25] MEDS: THIAMINE HCL 200 MG/2 ML VIAL IVPB SCH (19:13)
[2022-10-25] MEDS: ATORVASTATIN CA 10 MG TABLET (FP) PO SCH (23:08)
[2022-10-26] MEDS: THIAMINE HCL 200 MG/2 ML VIAL IVPB SCH ×3 (03:09→17:53)
[2022-10-26] MEDS: LORazepam 0.5 MG TABLET PO SCH ×3 (05:52→17:21)
[2022-10-26 08:35] LABS: ALBUMIN 2.9 g/dl (3.4-5.0); BLOOD UREA NITROGEN 17.2 mg/dL (7-18); CALCIUM 8.5 mg/dL (8.5-10.1)
[2022-10-26 08:36] LABS: MAGNESIUM 1.7 mg/dL (1.8-2.4)
[2022-10-26 08:38] LABS: CREATININE 1.2 mg/dL (0.55-1.3); PHOSPHOROUS 3.5 mg/dL (2.5-4.9)
[2022-10-26 08:39] LABS: BILIRUBIN,TOTAL 0.7 mg/dL (0.2-1); TOT PROT 5.8 g/dl (6.4-8.2)
[2022-10-26 08:56] LABS: BASO % 1.3 % (0-2.0); EOS % 2.1 % (0-4.5); HEMATOCRIT 25.6 % (35.4-49); HEMOGLOBIN 8.4 GM/dL (11.7-16.9); LYMPH % 17.7 % (8-40); MCHC 32.9 g/dl (32.0-35.9); MEAN CELL VOLUME 76.1 fl (80-96); MEAN PLT VOLUME 7.4 fl (7.5-11.1); MONO % 10.9 % (3.8-10.2); PLATELET COUNT 349 10^3/uL (134-434); RBC 3.37 M/mm3 (4.00-5.60); RDW 18.4 % (11.9-15.9); WHITE BLOOD COUNT 9.5 K/mm3 (4.0-10.0)
[2022-10-26] MEDS: FOLIC ACID 1 MG TABLET (FP) PO SCH (10:59)
[2022-10-26] MEDS: PANTOPRAZOLE 20 MG TABLET PO SCH (11:00)
[2022-10-26] MEDS: LISINOPRIL 20 MG TABLET PO SCH (11:00)
[2022-10-26] MEDS: APIXABAN 5 MG TABLET PO SCH ×2 (11:00→22:21)
[2022-10-26] MEDS: MULTIVITAMINS (DAILY MVI) TABLET (FP) PO SCH (11:00)
[2022-10-26] MEDS: FLUTICASONE/UMECLIDIN/VILANTER(200-62.5-25 TRELEGY ELLIPTA) INAHLER IH SCH (11:02)
[2022-10-26] MEDS ORDERED: DESMOPRESSIN ACETATE 4 MCG/ML AMP IVPB ONE (21:40)
[2022-10-26] MEDS ORDERED: BENZOCAINE/MENTH/CETYLPYRD CL 1 EACH LOZENGE MM PRN (21:40)
[2022-10-26] MEDS ORDERED: LORazepam 0.5 MG TABLET PO PRN (21:40)
[2022-10-26] MEDS ORDERED: ALBUTEROL SO4 2.5/IPRATROPIUM 0.5 INH SOL 3 ML VIAL.NEB. NEB PRN (21:40)
[2022-10-26] MEDS ORDERED: ALBUTEROL SO4 HFA INHALER IH PRN (21:40)
[2022-10-26] MEDS: ATORVASTATIN CA 10 MG TABLET (FP) PO SCH (22:20)
[2022-10-26] MEDS: MELATONIN 5 MG TABLETS PO PRN (22:21)
[2022-10-26] MEDS ORDERED: LORazepam 0.5 MG TABLET PO SCH (23:00)
[2022-10-27] MEDS ORDERED: LORazepam 0.5 MG TABLET PO PRN ×2
[2022-10-27] MEDS: THIAMINE HCL 200 MG/2 ML VIAL IVPB SCH ×3 (03:00→18:54)
[2022-10-27] MEDS ORDERED: LORazepam 0.5 MG TABLET PO ONE ×2 (05:00)
[2022-10-27] MEDS: APIXABAN 5 MG TABLET PO SCH ×2 (09:13→22:09)
[2022-10-27] MEDS: MULTIVITAMINS (DAILY MVI) TABLET (FP) PO SCH (09:13)
[2022-10-27] MEDS: PANTOPRAZOLE 20 MG TABLET PO SCH (09:13)
[2022-10-27] MEDS: LISINOPRIL 20 MG TABLET PO SCH (09:13)
[2022-10-27] MEDS: FOLIC ACID 1 MG TABLET (FP) PO SCH (09:13)
[2022-10-27 10:41] LABS: BASO % 1.9 % (0-2.0); EOS % 3.1 % (0-4.5); HEMATOCRIT 26.5 % (35.4-49); HEMOGLOBIN 8.6 GM/dL (11.7-16.9); MCH 24.8 pg (25.7-33.7); MCHC 32.4 g/dl (32.0-35.9); MEAN CELL VOLUME 76.5 fl (80-96); MEAN PLT VOLUME 7.3 fl (7.5-11.1); PLATELET COUNT 351 10^3/uL (134-434); RBC 3.46 M/mm3 (4.00-5.60); RDW 18.5 % (11.9-15.9); WHITE BLOOD COUNT 8.5 K/mm3 (4.0-10.0)
[2022-10-27 11:03] LABS: CALCIUM 8.8 mg/dL (8.5-10.1)
[2022-10-27 11:04] LABS: ALBUMIN 2.9 g/dl (3.4-5.0)
[2022-10-27 11:07] LABS: PHOSPHOROUS 3.7 mg/dL (2.5-4.9)
[2022-10-27 11:10] LABS: BILIRUBIN,TOTAL 0.5 mg/dL (0.2-1); MAGNESIUM 1.6 mg/dL (1.8-2.4)
[2022-10-27] MEDS: FLUTICASONE/UMECLIDIN/VILANTER(200-62.5-25 TRELEGY ELLIPTA) INAHLER IH SCH (13:50)
[2022-10-27] MEDS ORDERED: MAGNESIUM SULF 50% (8.12 MEQ/2 ML-1 GM VIAL) IVPB ONE (14:30)
[2022-10-27] MEDS: ATORVASTATIN CA 10 MG TABLET (FP) PO SCH (22:09)
[2022-10-27] MEDS: MELATONIN 5 MG TABLETS PO PRN (22:09)
[2022-10-28] MEDS: THIAMINE HCL 200 MG/2 ML VIAL IVPB SCH ×2 (02:25→10:02)
[2022-10-28 09:06] LABS: HEMATOCRIT 28.3 % (35.4-49); HEMOGLOBIN 9.2 GM/dL (11.7-16.9); MCH 24.5 pg (25.7-33.7); MCHC 32.7 g/dl (32.0-35.9); MEAN CELL VOLUME 74.9 fl (80-96); MEAN PLT VOLUME 7.6 fl (7.5-11.1); PLATELET COUNT 452 10^3/uL (134-434); RBC 3.78 M/mm3 (4.00-5.60); RDW 18.2 % (11.9-15.9); WHITE BLOOD COUNT 7.8 K/mm3 (4.0-10.0)
[2022-10-28 09:42] LABS: ALBUMIN 3.1 g/dl (3.4-5.0); BLOOD UREA NITROGEN 13.5 mg/dL (7-18); CALCIUM 9.3 mg/dL (8.5-10.1); MAGNESIUM 2.1 mg/dL (1.8-2.4)
[2022-10-28 09:45] LABS: CREATININE 1.1 mg/dL (0.55-1.3)
[2022-10-28 09:46] LABS: BILIRUBIN,TOTAL 0.5 mg/dL (0.2-1)
[2022-10-28 09:47] LABS: TOT PROT 6.5 g/dl (6.4-8.2)
[2022-10-28] MEDS: FLUTICASONE/UMECLIDIN/VILANTER(200-62.5-25 TRELEGY ELLIPTA) INAHLER IH SCH (09:56)
[2022-10-28] MEDS: PANTOPRAZOLE 20 MG TABLET PO SCH (10:02)
[2022-10-28] MEDS: MULTIVITAMINS (DAILY MVI) TABLET (FP) PO SCH (10:02)
[2022-10-28] MEDS: APIXABAN 5 MG TABLET PO SCH ×2 (10:02→22:07)
[2022-10-28] MEDS: LISINOPRIL 20 MG TABLET PO SCH (10:02)
[2022-10-28] MEDS: FOLIC ACID 1 MG TABLET (FP) PO SCH (10:02)
[2022-10-28] MEDS: ATORVASTATIN CA 10 MG TABLET (FP) PO SCH (22:07)
[2022-10-28] MEDS: MELATONIN 5 MG TABLETS PO PRN (23:35)
[2022-10-29] MEDS: THIAMINE HCL 200 MG/2 ML VIAL IVPB SCH ×4 (01:41→17:41)
[2022-10-29] MEDS: FOLIC ACID 1 MG TABLET (FP) PO SCH (09:37)
[2022-10-29] MEDS: APIXABAN 5 MG TABLET PO SCH ×2 (09:37→21:20)
[2022-10-29] MEDS: LISINOPRIL 20 MG TABLET PO SCH (09:37)
[2022-10-29] MEDS: PANTOPRAZOLE 20 MG TABLET PO SCH (09:37)
[2022-10-29] MEDS: FLUTICASONE/UMECLIDIN/VILANTER(200-62.5-25 TRELEGY ELLIPTA) INAHLER IH SCH (09:37)
[2022-10-29] MEDS: MULTIVITAMINS (DAILY MVI) TABLET (FP) PO SCH (09:37)
[2022-10-29] MEDS: ATORVASTATIN CA 10 MG TABLET (FP) PO SCH (21:19)
[2022-10-29] MEDS: MELATONIN 5 MG TABLETS PO PRN (21:20)
[2022-10-29 22:34] VITALS: RESP 18
[2022-10-30] MEDS: THIAMINE HCL 200 MG/2 ML VIAL IVPB SCH ×2 (01:56→09:38)
[2022-10-30] MEDS: LISINOPRIL 20 MG TABLET PO SCH (09:37)
[2022-10-30] MEDS: FOLIC ACID 1 MG TABLET (FP) PO SCH (09:37)
[2022-10-30] MEDS: APIXABAN 5 MG TABLET PO SCH (09:37)
[2022-10-30] MEDS: MULTIVITAMINS (DAILY MVI) TABLET (FP) PO SCH (09:37)
[2022-10-30] MEDS: PANTOPRAZOLE 20 MG TABLET PO SCH (09:37)
[2022-10-30] MEDS: FLUTICASONE/UMECLIDIN/VILANTER(200-62.5-25 TRELEGY ELLIPTA) INAHLER IH SCH (09:40)
[2022-10-30 11:13] VITALS: BP 113/64; PULSE 76; TEMP 97.6
== END 2022-10-30 13:00 | DRG 640 ==
LOC: JER 02:38 → JERBED 06:34 → J4W 16:29 → J8W 10-26 21:44
PROVIDERS: ADMIT Internal Medicine; ATTEND Internal Medicine
DX: E87.1 Hypo-osmolality and hyponatremia (principal); G93.41 Metabolic encephalopathy; I69.351 Hemiplegia and hemiparesis following cerebral infarction affecting right dominant side; I50.32 Chronic diastolic (congestive) heart failure; J44.9 Chronic obstructive pulmonary disease, unspecified; M54.50 Low back pain, unspecified; I11.0 Hypertensive heart disease with heart failure; I25.119 Atherosclerotic heart disease of native coronary artery with unspecified angina pectoris; R41.82 Altered mental status, unspecified; G89.29 Other chronic pain; F17.210 Nicotine dependence, cigarettes, uncomplicated; E11.51 Type 2 diabetes mellitus with diabetic peripheral angiopathy without gangrene; I27.20 Pulmonary hypertension, unspecified; R29.6 Repeated falls; R26.81 Unsteadiness on feet; F10.10 Alcohol abuse, uncomplicated; G47.00 Insomnia, unspecified; I48.0 Paroxysmal atrial fibrillation; F13.10 Sedative, hypnotic or anxiolytic abuse, uncomplicated; G47.33 Obstructive sleep apnea (adult) (pediatric); I73.9 Peripheral vascular disease, unspecified; K21.9 Gastro-esophageal reflux disease without esophagitis; G47.30 Sleep apnea, unspecified; Z95.5 Presence of coronary angioplasty implant and graft
CPT/HCPCS: 0241U-QW; 36415; 70450-TC; 71045-TC-FY; 72125-TC; 72170-TC-FY; 80048; 80053; 80061; 81003; 82140; 82436; 82533; 82570; 82607; 82728; 82746; 82803; 82962; 83036; 83540; 83550; 83735; 83880; 83930; 83935; 84100; 84133; 84300; 84443; 84466; 84484; 85025; 85027; 85045; 85610; 85730; 87086; 93005; 93010; 93306-TC; 93925-TC; 94010; 94640; 97116-GP; 97162-GP; 99291; 99292; C9803-CS; J2597; U0003; U0005

== ENCOUNTER 2022-11-04 11:09 | Inpatient (IN) | payer OTHER, BC ==
[2022-11-04 11:47] VITALS: BMI 26.2
[2022-11-04 13:59] LABS: HEMATOCRIT 30.3 % (35.4-49); HEMOGLOBIN 10.2 GM/dL (11.7-16.9); MCH 25.8 pg (25.7-33.7); MCHC 33.6 g/dl (32.0-35.9); MEAN CELL VOLUME 76.7 fl (80-96); MEAN PLT VOLUME 8.2 fl (7.5-11.1); PLATELET COUNT 600 10^3/uL (134-434); RBC 3.95 M/mm3 (4.00-5.60); RDW 18.4 % (11.9-15.9); WHITE BLOOD COUNT 19.6 K/mm3 (4.0-10.0)
[2022-11-04 14:06] LABS: INR 1.51 (0.83-1.09); PROTHROMBIN TIME (PATIENT) 17.5 SEC (9.7-13.0)
[2022-11-04 14:09] LABS: ACTIVATED PTT 33.2 SECONDS (25.2-36.5)
[2022-11-04 14:21] LABS: CALCIUM 9.3 mg/dL (8.5-10.1)
[2022-11-04 14:22] LABS: ALBUMIN 3.4 g/dl (3.4-5.0); BLOOD UREA NITROGEN 23.1 mg/dL (7-18); MAGNESIUM 1.8 mg/dL (1.8-2.4)
[2022-11-04 14:24] LABS: CREATININE 1.4 mg/dL (0.55-1.3)
[2022-11-04 14:26] LABS: BILIRUBIN,TOTAL 0.5 mg/dL (0.2-1); TOT PROT 7.1 g/dl (6.4-8.2)
[2022-11-04 14:40] LABS: ANISOCYTOSIS 0; HELMET CELLS 0; HOWELL-JOLLY BODIES 0; MACROCYTOSIS 0; OVALOCYTE 0; ROULEAU 0; SICKELED CELLS 0; TARGET CELLS 0; TEAR DROP CELLS 0; TOXIC GRANULATION 0
[2022-11-04] MEDS ORDERED: CEFTRIAXONE 1 GM in DEXTROSE 5%-WATER - 100 ML IVPB ONE (15:15)
[2022-11-04] MEDS ORDERED: PIPERACILLIN/TAZOB 4.5 GM 4.5 GM in DEXTROSE 5%-WATER 100 ML IVPB ONE (15:21)
[2022-11-04] MEDS ORDERED: CEFTRIAXONE 1 GM/50 ML BAG ONE (16:09)
[2022-11-04] MEDS ORDERED: PIPERACILLIN/TAZOB 4.5 GM 4.5 GM/100 ML BAG IVPB ONE (16:09)
[2022-11-04] MEDS ORDERED: ALBUTEROL SO4 2.5/IPRATROPIUM 0.5 INH SOL 3 ML VIAL.NEB. NEB PRN (19:09)
[2022-11-04] MEDS ORDERED: PIPERACILLIN/TAZOB 3.375 GM 3.375 GM/50 ML BAG IVPB ONE (23:56)
[2022-11-04] MEDS ORDERED: APIXABAN 5 MG TABLET ONE (23:56)
[2022-11-05] MEDS: APIXABAN 5 MG TABLET PO SCH ×3 (00:07→21:59)
[2022-11-05] MEDS: NYSTATIN 500,000 UNITS/5 ML SUSPENSION PO SCH ×4 (00:08→18:21)
[2022-11-05] MEDS ORDERED: ALBUTEROL SO4 2.5/IPRATROPIUM 0.5 INH SOL 3 ML VIAL.NEB. NEB ONE ×2 (00:50→09:42)
[2022-11-05] MEDS ORDERED: PIPERACILLIN/TAZOB 3.375 GM 3.375 GM in DEXTROSE 5%-WATER - 50 ML IVPB SCH (01:00)
[2022-11-05 06:34] LABS: HEMATOCRIT 26.8 % (35.4-49); HEMOGLOBIN 8.8 GM/dL (11.7-16.9); MCH 24.8 pg (25.7-33.7); MCHC 32.7 g/dl (32.0-35.9); MEAN CELL VOLUME 75.9 fl (80-96); MEAN PLT VOLUME 8.1 fl (7.5-11.1); PLATELET COUNT 482 10^3/uL (134-434); RBC 3.53 M/mm3 (4.00-5.60); RDW 17.8 % (11.9-15.9); WHITE BLOOD COUNT 22.3 K/mm3 (4.0-10.0)
[2022-11-05 06:55] LABS: CALCIUM 8.8 mg/dL (8.5-10.1)
[2022-11-05 06:56] LABS: BLOOD UREA NITROGEN 36.3 mg/dL (7-18)
[2022-11-05 06:59] LABS: CREATININE 2.6 mg/dL (0.55-1.3)
[2022-11-05 07:01] LABS: BILIRUBIN,TOTAL 0.7 mg/dL (0.2-1); TOT PROT 6.2 g/dl (6.4-8.2)
[2022-11-05] MEDS: SODIUM CHLORIDE 1,000 ML IV SCH (08:30)
[2022-11-05] MEDS ORDERED: APIXABAN 5 MG TABLET ONE (09:41)
[2022-11-05] MEDS ORDERED: PANTOPRAZOLE 40 MG TABLET PO ONE (09:41)
[2022-11-05] MEDS ORDERED: FOLIC ACID 1 MG TABLET (FP) ONE (09:41)
[2022-11-05] MEDS: FOLIC ACID 1 MG TABLET (FP) PO SCH (09:55)
[2022-11-05] MEDS: PANTOPRAZOLE 40 MG TABLET PO SCH (09:55)
[2022-11-05] MEDS: MULTIVITAMINS (DAILY MVI) TABLET (FP) PO SCH (09:55)
[2022-11-05] MEDS ORDERED: LISINOPRIL 20 MG TABLET PO SCH (10:00)
[2022-11-05] MEDS: PIPERACILLIN/TAZOB 3.375 GM 3.375 GM in DEXTROSE 5%-WATER - 50 ML IVPB SCH ×3 (10:04→18:21)
[2022-11-05] MEDS ORDERED: PIPERACILLIN/TAZOB 3.375 GM 3.375 GM/50 ML BAG IVPB ONE (10:20)
[2022-11-05] MEDS ORDERED: SODIUM CHLORIDE 500 ML IV STA (13:06)
[2022-11-05 15:34] LABS: URINE COLOR YELLOW
[2022-11-05 15:35] LABS: URINE APPEARANCE CLEAR; URINE BILIRUBIN NEGATIVE (NEGATIVE); URINE GLUCOSE (UA) NEGATIVE (NEGATIVE); URINE KETONE TRACE (NEGATIVE); URINE LEUK ESTERASE NEGATIVE (NEGATIVE); URINE NITRITE NEGATIVE (NEGATIVE); URINE PROTEIN 1+ (NEGATIVE); URINE RBC 0-3 /uL (0-23.9); URINE UROBILINOGEN 0.2 mg/dL (0.2-1.0); URINE WBC 0-3 /uL (0-25.8)
[2022-11-05] MEDS: MELATONIN 5 MG TABLETS PO PRN (21:59)
[2022-11-06] MEDS: NYSTATIN 500,000 UNITS/5 ML SUSPENSION PO SCH ×4 (00:20→18:34)
[2022-11-06] MEDS: PIPERACILLIN/TAZOB 3.375 GM 3.375 GM in DEXTROSE 5%-WATER - 50 ML IVPB SCH ×3 (01:50→18:34)
[2022-11-06 08:20] LABS: HEMATOCRIT 25.5 % (35.4-49); HEMOGLOBIN 8.2 GM/dL (11.7-16.9); MCH 24.4 pg (25.7-33.7); MCHC 32.1 g/dl (32.0-35.9); MEAN CELL VOLUME 76.3 fl (80-96); MEAN PLT VOLUME 7.8 fl (7.5-11.1); PLATELET COUNT 466 10^3/uL (134-434); RBC 3.34 M/mm3 (4.00-5.60); RDW 17.9 % (11.9-15.9); WHITE BLOOD COUNT 14.4 K/mm3 (4.0-10.0)
[2022-11-06 08:31] LABS: ALBUMIN 2.6 g/dl (3.4-5.0); CALCIUM 8.8 mg/dL (8.5-10.1)
[2022-11-06 08:32] LABS: BLOOD UREA NITROGEN 32.5 mg/dL (7-18)
[2022-11-06 08:34] LABS: CREATININE 1.8 mg/dL (0.55-1.3)
[2022-11-06 08:36] LABS: BILIRUBIN,TOTAL 0.6 mg/dL (0.2-1); TOT PROT 5.7 g/dl (6.4-8.2)
[2022-11-06] MEDS: FOLIC ACID 1 MG TABLET (FP) PO SCH (10:28)
[2022-11-06] MEDS: APIXABAN 5 MG TABLET PO SCH ×2 (10:28→21:34)
[2022-11-06] MEDS: MULTIVITAMINS (DAILY MVI) TABLET (FP) PO SCH (10:28)
[2022-11-06] MEDS: PANTOPRAZOLE 40 MG TABLET PO SCH (10:28)
[2022-11-06] MEDS: SODIUM CHLORIDE 1,000 ML IV SCH (10:38)
[2022-11-06] MEDS ORDERED: ALBUTEROL SO4 0.083% IH SOL 2.5 MG/3 ML VIAL.NEB. NEB PRN (12:00)
[2022-11-06] MEDS: FLUTICASONE/UMECLIDIN/VILANTER(200-62.5-25 TRELEGY ELLIPTA) INAHLER IH SCH ×2 (12:20→12:22)
[2022-11-06] MEDS: MELATONIN 5 MG TABLETS PO PRN (21:34)
[2022-11-06 21:40] LABS: PH,URINE 5.5 (5.0-8.0); URINE APPEARANCE CLEAR; URINE BILIRUBIN NEGATIVE (NEGATIVE); URINE COLOR YELLOW; URINE GLUCOSE (UA) NEGATIVE (NEGATIVE); URINE KETONE NEGATIVE (NEGATIVE); URINE LEUK ESTERASE NEGATIVE (NEGATIVE); URINE NITRITE NEGATIVE (NEGATIVE); URINE PROTEIN TRACE (NEGATIVE)
[2022-11-07] MEDS: NYSTATIN 500,000 UNITS/5 ML SUSPENSION PO SCH ×4 (00:19→17:29)
[2022-11-07] MEDS: PIPERACILLIN/TAZOB 3.375 GM 3.375 GM in DEXTROSE 5%-WATER - 50 ML IVPB SCH ×2 (01:19→09:44)
[2022-11-07 07:44] LABS: CALCIUM 8.5 mg/dL (8.5-10.1)
[2022-11-07 07:45] LABS: ALBUMIN 2.6 g/dl (3.4-5.0); BLOOD UREA NITROGEN 20.8 mg/dL (7-18); HEMATOCRIT 23.8 % (35.4-49); HEMOGLOBIN 7.9 GM/dL (11.7-16.9); MCH 25.2 pg (25.7-33.7); MEAN CELL VOLUME 76.4 fl (80-96); MEAN PLT VOLUME 7.7 fl (7.5-11.1); PLATELET COUNT 441 10^3/uL (134-434); RBC 3.12 M/mm3 (4.00-5.60); RDW 18.3 % (11.9-15.9); WHITE BLOOD COUNT 9.5 K/mm3 (4.0-10.0)
[2022-11-07 07:48] LABS: CREATININE 1.2 mg/dL (0.55-1.3)
[2022-11-07 07:50] LABS: BILIRUBIN,TOTAL 0.4 mg/dL (0.2-1); TOT PROT 5.5 g/dl (6.4-8.2)
[2022-11-07] MEDS: SODIUM CHLORIDE 1,000 ML IV SCH ×2 (09:44→17:30)
[2022-11-07] MEDS: APIXABAN 5 MG TABLET PO SCH ×2 (09:44→21:28)
[2022-11-07] MEDS: FOLIC ACID 1 MG TABLET (FP) PO SCH (09:44)
[2022-11-07] MEDS: PANTOPRAZOLE 40 MG TABLET PO SCH (09:44)
[2022-11-07] MEDS: MULTIVITAMINS (DAILY MVI) TABLET (FP) PO SCH (09:44)
[2022-11-07] MEDS: FLUTICASONE/UMECLIDIN/VILANTER(200-62.5-25 TRELEGY ELLIPTA) INAHLER IH SCH (09:48)
[2022-11-07] MEDS: ATORVASTATIN CA 20 MG TABLET (FP) PO SCH (21:28)
[2022-11-07] MEDS: MELATONIN 5 MG TABLETS PO PRN (21:28)
[2022-11-08] MEDS: NYSTATIN 500,000 UNITS/5 ML SUSPENSION PO SCH ×4 (00:18→17:24)
[2022-11-08] MEDS: SODIUM CHLORIDE 1,000 ML IV SCH (05:58)
[2022-11-08 08:36] LABS: BASO % 2.3 % (0-2.0); EOS % 2.1 % (0-4.5); HEMATOCRIT 26.4 % (35.4-49); HEMOGLOBIN 8.5 GM/dL (11.7-16.9); LYMPH % 19.3 % (8-40); MCH 24.9 pg (25.7-33.7); MCHC 32.3 g/dl (32.0-35.9); MEAN CELL VOLUME 77.2 fl (80-96); MEAN PLT VOLUME 8.2 fl (7.5-11.1); MONO % 10.7 % (3.8-10.2); NEUT % 65.6 % (42.8-82.8); PLATELET COUNT 500 10^3/uL (134-434); RBC 3.42 M/mm3 (4.00-5.60); RDW 17.5 % (11.9-15.9); WHITE BLOOD COUNT 8.2 K/mm3 (4.0-10.0)
[2022-11-08 08:46] LABS: ALBUMIN 2.6 g/dl (3.4-5.0); CALCIUM 9.1 mg/dL (8.5-10.1)
[2022-11-08 08:47] LABS: MAGNESIUM 1.6 mg/dL (1.8-2.4)
[2022-11-08 08:51] LABS: BILIRUBIN,TOTAL 0.4 mg/dL (0.2-1); TOT PROT 5.5 g/dl (6.4-8.2)
[2022-11-08] MEDS: MULTIVITAMINS (DAILY MVI) TABLET (FP) PO SCH (10:31)
[2022-11-08] MEDS: APIXABAN 5 MG TABLET PO SCH ×2 (10:31→21:17)
[2022-11-08] MEDS: FOLIC ACID 1 MG TABLET (FP) PO SCH (10:31)
[2022-11-08] MEDS: PANTOPRAZOLE 40 MG TABLET PO SCH (10:31)
[2022-11-08] MEDS: FLUTICASONE/UMECLIDIN/VILANTER(200-62.5-25 TRELEGY ELLIPTA) INAHLER IH SCH (10:32)
[2022-11-08] MEDS ORDERED: MAGNESIUM SULF 50% (8.12 MEQ/2 ML-1 GM VIAL) IVPB ONE (12:27)
[2022-11-08] MEDS: ATORVASTATIN CA 20 MG TABLET (FP) PO SCH (21:17)
[2022-11-08] MEDS: MELATONIN 5 MG TABLETS PO PRN (21:25)
[2022-11-09] MEDS: NYSTATIN 500,000 UNITS/5 ML SUSPENSION PO SCH ×4 (00:55→17:07)
[2022-11-09] MEDS: APIXABAN 5 MG TABLET PO SCH ×2 (09:49→21:51)
[2022-11-09] MEDS: PANTOPRAZOLE 40 MG TABLET PO SCH (09:49)
[2022-11-09] MEDS: FOLIC ACID 1 MG TABLET (FP) PO SCH (09:49)
[2022-11-09] MEDS: MULTIVITAMINS (DAILY MVI) TABLET (FP) PO SCH (09:49)
[2022-11-09] MEDS: FLUTICASONE/UMECLIDIN/VILANTER(200-62.5-25 TRELEGY ELLIPTA) INAHLER IH SCH (09:52)
[2022-11-09] MEDS ORDERED: MAGNESIUM OXIDE 400 MG TABLET (FP) PO ONE (10:00)
[2022-11-09 10:22] LABS: BASO % 2.1 % (0-2.0); EOS % 2.1 % (0-4.5); HEMATOCRIT 25.7 % (35.4-49); HEMOGLOBIN 8.5 GM/dL (11.7-16.9); MCHC 33.2 g/dl (32.0-35.9); MEAN CELL VOLUME 75.2 fl (80-96); MEAN PLT VOLUME 8.2 fl (7.5-11.1); MONO % 12.4 % (3.8-10.2); NEUT % 63.4 % (42.8-82.8); PLATELET COUNT 490 10^3/uL (134-434); RBC 3.42 M/mm3 (4.00-5.60); WHITE BLOOD COUNT 7.6 K/mm3 (4.0-10.0)
[2022-11-09 10:46] LABS: CALCIUM 8.9 mg/dL (8.5-10.1)
[2022-11-09 10:47] LABS: ALBUMIN 2.7 g/dl (3.4-5.0); BLOOD UREA NITROGEN 9.1 mg/dL (7-18); MAGNESIUM 1.7 mg/dL (1.8-2.4)
[2022-11-09 10:52] LABS: BILIRUBIN,TOTAL 0.3 mg/dL (0.2-1); TOT PROT 5.7 g/dl (6.4-8.2)
[2022-11-09 11:39] VITALS: RESP 18
[2022-11-09] MEDS: MAGNESIUM OXIDE 400 MG TABLET (FP) PO SCH ×2 (12:31→21:51)
[2022-11-09] MEDS: BENZOCAINE/MENTHOL 1 EACH LOZENGE MM PRN ×2 (12:31→17:07)
[2022-11-09] MEDS: FAMOTIDINE 20 MG TABLET PO SCH (17:55)
[2022-11-09] MEDS: MELATONIN 5 MG TABLETS PO PRN (21:51)
[2022-11-09] MEDS: ATORVASTATIN CA 20 MG TABLET (FP) PO SCH (21:51)
[2022-11-10] MEDS: NYSTATIN 500,000 UNITS/5 ML SUSPENSION PO SCH ×3 (00:30→11:45)
[2022-11-10] MEDS: BENZOCAINE/MENTHOL 1 EACH LOZENGE MM PRN (08:55)
[2022-11-10] MEDS: FOLIC ACID 1 MG TABLET (FP) PO SCH (09:02)
[2022-11-10] MEDS: FAMOTIDINE 20 MG TABLET PO SCH (09:02)
[2022-11-10] MEDS: MULTIVITAMINS (DAILY MVI) TABLET (FP) PO SCH (09:02)
[2022-11-10] MEDS: APIXABAN 5 MG TABLET PO SCH (09:02)
[2022-11-10] MEDS: PANTOPRAZOLE 40 MG TABLET PO SCH (09:02)
[2022-11-10] MEDS: FLUTICASONE/UMECLIDIN/VILANTER(200-62.5-25 TRELEGY ELLIPTA) INAHLER IH SCH (09:03)
[2022-11-10 09:15] VITALS: BP 140/69; PULSE 100; TEMP 97.9
[2022-11-10 09:50] LABS: BASO % 2.1 % (0-2.0); EOS % 2.4 % (0-4.5); HEMATOCRIT 27.1 % (35.4-49); HEMOGLOBIN 8.9 GM/dL (11.7-16.9); LYMPH % 20.9 % (8-40); MCHC 32.7 g/dl (32.0-35.9); MEAN CELL VOLUME 76.5 fl (80-96); MEAN PLT VOLUME 7.9 fl (7.5-11.1); MONO % 13.1 % (3.8-10.2); NEUT % 61.5 % (42.8-82.8); PLATELET COUNT 541 10^3/uL (134-434); RBC 3.54 M/mm3 (4.00-5.60); RDW 18.2 % (11.9-15.9); WHITE BLOOD COUNT 7.9 K/mm3 (4.0-10.0)
[2022-11-10 10:11] LABS: ALBUMIN 2.9 g/dl (3.4-5.0); CALCIUM 8.8 mg/dL (8.5-10.1)
[2022-11-10 10:12] LABS: MAGNESIUM 1.7 mg/dL (1.8-2.4)
[2022-11-10 10:15] LABS: CREATININE 1.2 mg/dL (0.55-1.3)
[2022-11-10 10:16] LABS: TOT PROT 6.1 g/dl (6.4-8.2)
[2022-11-10 10:23] LABS: BILIRUBIN,TOTAL 0.4 mg/dL (0.2-1)
== END 2022-11-10 12:33 | DRG 683 ==
LOC: JER 11:09 → JERBED 15:16 → J8W 11-05 15:14
PROVIDERS: ADMIT Internal Medicine; ATTEND Internal Medicine
DX: N17.9 Acute kidney failure, unspecified (principal); E87.1 Hypo-osmolality and hyponatremia; J44.1 Chronic obstructive pulmonary disease with (acute) exacerbation; I10 Essential (primary) hypertension; I25.10 Atherosclerotic heart disease of native coronary artery without angina pectoris; J44.9 Chronic obstructive pulmonary disease, unspecified; I73.9 Peripheral vascular disease, unspecified; F10.10 Alcohol abuse, uncomplicated; I48.0 Paroxysmal atrial fibrillation; Z86.16 Personal history of COVID-19; D64.9 Anemia, unspecified; G47.33 Obstructive sleep apnea (adult) (pediatric); K76.0 Fatty (change of) liver, not elsewhere classified; R91.1 Solitary pulmonary nodule; D72.829 Elevated white blood cell count, unspecified
CPT/HCPCS: 0241U-QW; 36415; 71045-TC-FY; 71046-TC-FY; 71250-TC; 76705-TC; 80053; 81003; 82272; 82436; 82570; 83690; 83735; 84133; 84300; 84484; 85025; 85027; 85610; 85730; 86850; 86900; 86901; 87040; 87086; 93005; 93010; 97116-GP; 97161-GP; 99285-25; C9803-CS; U0003; U0005

== ENCOUNTER 2022-12-09 05:55 | Inpatient (IN) | payer OTHER, BC ==
[2022-12-09 06:07] VITALS: BMI 24.3
[2022-12-09 07:23] LABS: VENOUS BASE EXCESS -1.1 mmol/L (-2-2); VENOUS O2 SATURATION 31.8 % (70-80); VENOUS PCO2 46.5 mmHg (38-52); VENOUS PH 7.343 (7.310-7.410)
[2022-12-09] MEDS ORDERED: ALBUTEROL SO4 2.5/IPRATROPIUM 0.5 INH SOL 3 ML VIAL.NEB. NEB ONE ×2 (07:32→07:35)
[2022-12-09 07:34] LABS: BASO % 1.2 % (0-2.0); CHLORIDE 109 mmol/L (98-107); EOS % 2.6 % (0-4.5); HEMOGLOBIN 8.6 GM/dL (11.7-16.9); MCH 25.6 pg (25.7-33.7); MCHC 33.1 g/dl (32.0-35.9); MEAN CELL VOLUME 77.3 fl (80-96); MEAN PLT VOLUME 8.4 fl (7.5-11.1); MONO % 9.2 % (3.8-10.2); PLATELET COUNT 381 10^3/uL (134-434); POTASSIUM 4.4 mmol/L (3.5-5.1); RBC 3.37 M/mm3 (4.00-5.60); RDW 17.6 % (11.9-15.9); SODIUM 141 mmol/L (136-145); WHITE BLOOD COUNT 10.9 K/mm3 (4.0-10.0)
[2022-12-09 07:37] LABS: ALBUMIN 3.3 g/dl (3.4-5.0); ANION GAP 7 MMOL/L (8-16); BLOOD UREA NITROGEN 22.8 mg/dL (7-18); CALCIUM 9.6 mg/dL (8.5-10.1); CO2 24 mmol/L (21-32); GLUCOSE,RANDOM 110 mg/dL (74-106)
[2022-12-09 07:38] LABS: MAGNESIUM 1.6 mg/dL (1.8-2.4)
[2022-12-09] MEDS ORDERED: DEXAMETHASONE SOD PHOSPHATE 10 MG/1 ML VIAL IVPUSH ONE (07:39)
[2022-12-09 07:40] LABS: CREATININE 1.7 mg/dL (0.55-1.3); INR 1.44 (0.83-1.09); PROTHROMBIN TIME (PATIENT) 16.6 SEC (9.7-13.0); SGOT/AST 13 U/L (15-37); SGPT/ALT 16 U/L (13-61)
[2022-12-09 07:42] LABS: BILIRUBIN,TOTAL 0.3 mg/dL (0.2-1); TOT PROT 6.6 g/dl (6.4-8.2)
[2022-12-09 07:43] LABS: ACTIVATED PTT 32.7 SECONDS (25.2-36.5)
[2022-12-09 07:44] LABS: ALK PHOS 103 U/L (45-117)
[2022-12-09] MEDS ORDERED: AZITHROMYCIN IVPB 500 MG in DEXTROSE 5%-WATER - 250 ML IVPB ONE (07:44)
[2022-12-09] MEDS ORDERED: AZITHROMYCIN IVPB 500 MG/250 ML BAG IVPB ONE (07:48)
[2022-12-09] MEDS ORDERED: DEXAMETHASONE SOD PHOSPHATE 10 MG/1 ML VIAL ONE (07:48)
[2022-12-09] MEDS ORDERED: APIXABAN 5 MG TABLET PO ONE (07:51)
[2022-12-09] MEDS ORDERED: APIXABAN 5 MG TABLET ONE (07:56)
[2022-12-09 08:05] LABS: N-TERMINAL BNP 7982.5 pg/ml (5-125)
[2022-12-09] MEDS ORDERED: ALBUTEROL SO4 2.5/IPRATROPIUM 0.5 INH SOL 3 ML VIAL.NEB. NEB PRN (09:03)
[2022-12-09] MEDS ORDERED: ACETAMINOPHEN 325 MG TABLET (FP) PO PRN (09:08)
[2022-12-09] MEDS ORDERED: FLUTICASONE/UMECLIDIN/VILANTER(200-62.5-25 TRELEGY ELLIPTA) INAHLER IH SCH (10:00)
[2022-12-09] MEDS: PANTOPRAZOLE 40 MG TABLET PO SCH (10:48)
[2022-12-09] MEDS: methylPREDNISolone NA SUCC 40 MG/1 ML VIAL IVPUSH SCH ×2 (10:49→17:17)
[2022-12-09] MEDS: FOLIC ACID 1 MG TABLET (FP) PO SCH (10:49)
[2022-12-09] MEDS: MULTIVITAMINS (DAILY MVI) TABLET (FP) PO SCH (10:49)
[2022-12-09] MEDS: APIXABAN 5 MG TABLET PO SCH ×2 (10:49→21:09)
[2022-12-09] MEDS: MAGNESIUM OXIDE 400 MG TABLET (FP) PO SCH ×2 (10:49→21:09)
[2022-12-09 12:09] LABS: PH,URINE 5.5 (5.0-8.0); URINE APPEARANCE CLEAR; URINE BILIRUBIN NEGATIVE (NEGATIVE); URINE COLOR YELLOW; URINE GLUCOSE (UA) NEGATIVE (NEGATIVE); URINE KETONE NEGATIVE (NEGATIVE); URINE LEUK ESTERASE NEGATIVE (NEGATIVE); URINE NITRITE NEGATIVE (NEGATIVE); URINE PROTEIN TRACE (NEGATIVE); URINE UROBILINOGEN 0.2 mg/dL (0.2-1.0)
[2022-12-09] MEDS: FUROSEMIDE 40 MG/4 ML INJECTABLE VIAL IVPUSH SCH (12:22)
[2022-12-09] MEDS: ATORVASTATIN CA 20 MG TABLET (FP) PO SCH (21:09)
[2022-12-10] MEDS: MELATONIN 5 MG TABLETS PO PRN ×2 (00:57→21:14)
[2022-12-10] MEDS: methylPREDNISolone NA SUCC 40 MG/1 ML VIAL IVPUSH SCH (00:59)
[2022-12-10 08:19] LABS: HEMATOCRIT 23.6 % (35.4-49); HEMOGLOBIN 7.9 GM/dL (11.7-16.9); MCH 25.3 pg (25.7-33.7); MCHC 33.6 g/dl (32.0-35.9); MEAN CELL VOLUME 75.5 fl (80-96); MEAN PLT VOLUME 8.4 fl (7.5-11.1); PLATELET COUNT 347 10^3/uL (134-434); RBC 3.12 M/mm3 (4.00-5.60); RDW 17.8 % (11.9-15.9); WHITE BLOOD COUNT 7.6 K/mm3 (4.0-10.0)
[2022-12-10 08:41] LABS: CALCIUM 9.6 mg/dL (8.5-10.1)
[2022-12-10 08:42] LABS: ALBUMIN 3.3 g/dl (3.4-5.0); BLOOD UREA NITROGEN 25.1 mg/dL (7-18)
[2022-12-10 08:45] LABS: CREATININE 1.3 mg/dL (0.55-1.3)
[2022-12-10 08:47] LABS: BILIRUBIN,TOTAL 0.4 mg/dL (0.2-1); TOT PROT 6.3 g/dl (6.4-8.2)
[2022-12-10] MEDS: MAGNESIUM OXIDE 400 MG TABLET (FP) PO SCH ×2 (09:35→21:13)
[2022-12-10] MEDS: MULTIVITAMINS (DAILY MVI) TABLET (FP) PO SCH (09:35)
[2022-12-10] MEDS: FUROSEMIDE 40 MG/4 ML INJECTABLE VIAL IVPUSH SCH (09:35)
[2022-12-10] MEDS: APIXABAN 5 MG TABLET PO SCH ×2 (09:35→21:14)
[2022-12-10] MEDS: PANTOPRAZOLE 40 MG TABLET PO SCH (09:35)
[2022-12-10] MEDS: FOLIC ACID 1 MG TABLET (FP) PO SCH (09:35)
[2022-12-10] MEDS ORDERED: methylPREDNISolone NA SUCC 40 MG/1 ML VIAL IVPUSH SCH (10:00)
[2022-12-10] MEDS: ATORVASTATIN CA 20 MG TABLET (FP) PO SCH (21:13)
[2022-12-11 07:46] LABS: HEMATOCRIT 25.9 % (35.4-49); HEMOGLOBIN 8.8 GM/dL (11.7-16.9); MCH 26.6 pg (25.7-33.7); MCHC 34.1 g/dl (32.0-35.9); MEAN CELL VOLUME 77.9 fl (80-96); MEAN PLT VOLUME 8.3 fl (7.5-11.1); PLATELET COUNT 400 10^3/uL (134-434); RBC 3.33 M/mm3 (4.00-5.60); RDW 17.5 % (11.9-15.9); WHITE BLOOD COUNT 10.8 K/mm3 (4.0-10.0)
[2022-12-11 08:02] LABS: POTASSIUM 4.1 mmol/L (3.5-5.1)
[2022-12-11 08:17] LABS: BILIRUBIN,TOTAL 0.3 mg/dL (0.2-1); TOT PROT 6.5 g/dl (6.4-8.2)
[2022-12-11 08:18] LABS: CALCIUM 9.7 mg/dL (8.5-10.1)
[2022-12-11 08:19] LABS: ALBUMIN 3.3 g/dl (3.4-5.0); BLOOD UREA NITROGEN 34.2 mg/dL (7-18)
[2022-12-11 08:22] LABS: CREATININE 1.3 mg/dL (0.55-1.3)
[2022-12-11] MEDS: FOLIC ACID 1 MG TABLET (FP) PO SCH (09:27)
[2022-12-11] MEDS: PANTOPRAZOLE 40 MG TABLET PO SCH (09:27)
[2022-12-11] MEDS: MULTIVITAMINS (DAILY MVI) TABLET (FP) PO SCH (09:27)
[2022-12-11] MEDS: APIXABAN 5 MG TABLET PO SCH ×2 (09:27→21:29)
[2022-12-11] MEDS: FUROSEMIDE 40 MG/4 ML INJECTABLE VIAL IVPUSH SCH (09:28)
[2022-12-11] MEDS: MAGNESIUM OXIDE 400 MG TABLET (FP) PO SCH ×2 (09:28→21:29)
[2022-12-11] MEDS ORDERED: methylPREDNISolone NA SUCC 40 MG/1 ML VIAL IVPUSH SCH (10:00)
[2022-12-11 10:24] VITALS: RESP 18
[2022-12-11] MEDS: ATORVASTATIN CA 20 MG TABLET (FP) PO SCH (21:29)
[2022-12-11] MEDS: MELATONIN 5 MG TABLETS PO PRN (21:29)
[2022-12-12 09:01] VITALS: BP 130/56; PULSE 70; TEMP 97.8
[2022-12-12] MEDS: MULTIVITAMINS (DAILY MVI) TABLET (FP) PO SCH (09:21)
[2022-12-12] MEDS: FOLIC ACID 1 MG TABLET (FP) PO SCH (09:21)
[2022-12-12] MEDS: PANTOPRAZOLE 40 MG TABLET PO SCH (09:21)
[2022-12-12] MEDS: APIXABAN 5 MG TABLET PO SCH (09:21)
[2022-12-12] MEDS: FUROSEMIDE 40 MG/4 ML INJECTABLE VIAL IVPUSH SCH (09:21)
[2022-12-12] MEDS: MAGNESIUM OXIDE 400 MG TABLET (FP) PO SCH (09:27)
[2022-12-12] MEDS ORDERED: predniSONE 20 MG TABLET (UD) PO SCH (10:00)
== END 2022-12-12 12:13 | disposition home or self-care (01) | DRG 291 ==
LOC: JER 05:55 → JERBED 07:59 → J4W 09:11
PROVIDERS: ADMIT Internal Medicine; ATTEND Internal Medicine
DX: I13.0 Hypertensive heart and chronic kidney disease with heart failure and stage 1 through stage 4 chronic kidney disease, or unspecified chronic kidney disease (principal); I50.43 Acute on chronic combined systolic (congestive) and diastolic (congestive) heart failure; I24.8 Other forms of acute ischemic heart disease; J44.1 Chronic obstructive pulmonary disease with (acute) exacerbation; N18.30 Chronic kidney disease, stage 3 unspecified; E11.9 Type 2 diabetes mellitus without complications; I25.119 Atherosclerotic heart disease of native coronary artery with unspecified angina pectoris; Z95.5 Presence of coronary angioplasty implant and graft; E78.5 Hyperlipidemia, unspecified; K21.9 Gastro-esophageal reflux disease without esophagitis; I48.0 Paroxysmal atrial fibrillation
CPT/HCPCS: 0241U-QW; 36415; 71045-TC-FY; 80053; 81003; 82550; 82570; 82728; 82803; 82962; 83540; 83735; 83880; 84300; 84484; 85025; 85027; 85610; 85730; 86850; 86900; 86901; 93005; 93010; 93306-TC; 93970-TC; 94761; 97116-GP; 97161-GP; 99285-25; J1100

== ENCOUNTER 2023-01-16 12:14 | Inpatient (IN) | payer OTHER, BC ==
[2023-01-16 12:18] VITALS: BMI 24.7
[2023-01-16 13:25] LABS: BASO % 1.3 % (0-2.0); HEMATOCRIT 23.5 % (35.4-49); HEMOGLOBIN 7.4 GM/dL (11.7-16.9); LYMPH % 12.1 % (8-40); MCH 22.7 pg (25.7-33.7); MCHC 31.4 g/dl (32.0-35.9); MEAN CELL VOLUME 72.1 fl (80-96); MEAN PLT VOLUME 7.4 fl (7.5-11.1); MONO % 10.5 % (3.8-10.2); NEUT % 75.1 % (42.8-82.8); PLATELET COUNT 470 10^3/uL (134-434); RBC 3.27 M/mm3 (4.00-5.60); RDW 18.7 % (11.9-15.9); WHITE BLOOD COUNT 9.7 K/mm3 (4.0-10.0)
[2023-01-16 13:31] LABS: INR 2.58 (0.83-1.09); PROTHROMBIN TIME (PATIENT) 29.7 SEC (9.7-13.0)
[2023-01-16 13:34] LABS: ACTIVATED PTT 34.4 SECONDS (25.2-36.5)
[2023-01-16 13:37] LABS: VENOUS BASE EXCESS -1.8 mmol/L (-2-2); VENOUS O2 SATURATION 77.8 % (70-80); VENOUS PCO2 33.8 mmHg (38-52); VENOUS PH 7.433 (7.310-7.410)
[2023-01-16 14:39] LABS: URINE APPEARANCE CLEAR; URINE BILIRUBIN NEGATIVE (NEGATIVE); URINE COLOR YELLOW; URINE GLUCOSE (UA) NEGATIVE (NEGATIVE); URINE KETONE NEGATIVE (NEGATIVE); URINE LEUK ESTERASE NEGATIVE (NEGATIVE); URINE NITRITE NEGATIVE (NEGATIVE); URINE PROTEIN NEGATIVE (NEGATIVE); URINE UROBILINOGEN 0.2 mg/dL (0.2-1.0)
[2023-01-16] MEDS ORDERED: ALBUTEROL SO4 2.5/IPRATROPIUM 0.5 INH SOL 3 ML VIAL.NEB. NEB PRN (15:51)
[2023-01-16] MEDS ORDERED: FUROSEMIDE 40 MG/4 ML INJECTABLE VIAL ONE (16:31)
[2023-01-16] MEDS: FUROSEMIDE 40 MG/4 ML INJECTABLE VIAL IVPUSH SCH (16:35)
[2023-01-16 17:21] LABS: ALBUMIN 3.6 g/dl (3.4-5.0); BILIRUBIN,TOTAL 0.6 mg/dL (0.2-1); CALCIUM 9.1 mg/dL (8.5-10.1); CREATININE 1.6 mg/dL (0.55-1.3); MAGNESIUM 1.8 mg/dL (1.8-2.4); POTASSIUM 3.7 mmol/L (3.5-5.1); TOT PROT 6.3 g/dl (6.4-8.2)
[2023-01-16 17:22] LABS: N-TERMINAL BNP 19251.2 pg/ml (5-125)
[2023-01-16 19:25] LABS: IRON SERUM 26 ug/dL (50-175); TOTAL IRON BINDING CAPACITY 422 ug/dL (250-450)
[2023-01-16] MEDS ORDERED: methylPREDNISolone NA SUCC 40 MG/1 ML VIAL ONE (19:25)
[2023-01-16] MEDS: methylPREDNISolone NA SUCC 40 MG/1 ML VIAL IVPUSH SCH (19:52)
[2023-01-17] MEDS: MAGNESIUM OXIDE 400 MG TABLET (FP) PO SCH ×3 (00:05→21:26)
[2023-01-17] MEDS: ATORVASTATIN CA 20 MG TABLET (FP) PO SCH ×2 (00:05→21:25)
[2023-01-17] MEDS: MELATONIN 5 MG TABLETS PO PRN ×2 (00:06→21:26)
[2023-01-17] MEDS: methylPREDNISolone NA SUCC 40 MG/1 ML VIAL IVPUSH SCH ×3 (02:58→18:24)
[2023-01-17 07:32] LABS: HEMATOCRIT 32.5 % (35.4-49); HEMOGLOBIN 10.6 GM/dL (11.7-16.9); MCHC 32.5 g/dl (32.0-35.9); MEAN CELL VOLUME 77.1 fl (80-96); PLATELET COUNT 443 10^3/uL (134-434); RBC 4.22 M/mm3 (4.00-5.60); WHITE BLOOD COUNT 6.7 K/mm3 (4.0-10.0)
[2023-01-17 07:49] LABS: POTASSIUM 3.8 mmol/L (3.5-5.1)
[2023-01-17 07:52] LABS: CALCIUM 9.7 mg/dL (8.5-10.1)
[2023-01-17 07:53] LABS: ALBUMIN 3.7 g/dl (3.4-5.0)
[2023-01-17 07:56] LABS: CREATININE 1.4 mg/dL (0.55-1.3)
[2023-01-17 07:58] LABS: BILIRUBIN,TOTAL 1.2 mg/dL (0.2-1); TOT PROT 6.6 g/dl (6.4-8.2)
[2023-01-17] MEDS: FOLIC ACID 1 MG TABLET (FP) PO SCH (09:39)
[2023-01-17] MEDS: FUROSEMIDE 40 MG/4 ML INJECTABLE VIAL IVPUSH SCH (09:40)
[2023-01-17] MEDS: MULTIVITAMINS (DAILY MVI) TABLET (FP) PO SCH (09:40)
[2023-01-17] MEDS: PANTOPRAZOLE 40 MG TABLET PO SCH (09:40)
[2023-01-17] MEDS: FLUTICASONE/UMECLIDIN/VILANTER(200-62.5-25 TRELEGY ELLIPTA) INAHLER IH SCH (14:04)
[2023-01-18] MEDS: methylPREDNISolone NA SUCC 40 MG/1 ML VIAL IVPUSH SCH ×3 (03:38→21:24)
[2023-01-18 08:41] LABS: BASO % 0.2 % (0-2.0); HEMATOCRIT 31.1 % (35.4-49); LYMPH % 5.8 % (8-40); MCH 24.7 pg (25.7-33.7); MCHC 32.2 g/dl (32.0-35.9); MEAN CELL VOLUME 76.9 fl (80-96); MEAN PLT VOLUME 8.1 fl (7.5-11.1); MONO % 5.6 % (3.8-10.2); NEUT % 88.4 % (42.8-82.8); PLATELET COUNT 414 10^3/uL (134-434); RBC 4.04 M/mm3 (4.00-5.60); RDW 20.8 % (11.9-15.9)
[2023-01-18 09:01] LABS: INR 1.31 (0.83-1.09); PROTHROMBIN TIME (PATIENT) 15.1 SEC (9.7-13.0)
[2023-01-18 09:39] LABS: POTASSIUM 3.8 mmol/L (3.5-5.1)
[2023-01-18] MEDS: MULTIVITAMINS (DAILY MVI) TABLET (FP) PO SCH (09:43)
[2023-01-18] MEDS: PANTOPRAZOLE 40 MG TABLET PO SCH (09:43)
[2023-01-18] MEDS: MAGNESIUM OXIDE 400 MG TABLET (FP) PO SCH ×2 (09:43→21:24)
[2023-01-18] MEDS: FOLIC ACID 1 MG TABLET (FP) PO SCH (09:44)
[2023-01-18] MEDS: FUROSEMIDE 40 MG/4 ML INJECTABLE VIAL IVPUSH SCH (09:44)
[2023-01-18] MEDS: FLUTICASONE/UMECLIDIN/VILANTER(200-62.5-25 TRELEGY ELLIPTA) INAHLER IH SCH (09:45)
[2023-01-18 09:46] LABS: CALCIUM 9.6 mg/dL (8.5-10.1)
[2023-01-18 09:47] LABS: ALBUMIN 3.6 g/dl (3.4-5.0); BLOOD UREA NITROGEN 34.4 mg/dL (7-18); MAGNESIUM 2.4 mg/dL (1.8-2.4)
[2023-01-18 09:49] LABS: BILIRUBIN,TOTAL 0.7 mg/dL (0.2-1); TOT PROT 6.3 g/dl (6.4-8.2)
[2023-01-18 09:50] LABS: CREATININE 1.5 mg/dL (0.55-1.3)
[2023-01-18] MEDS ORDERED: BISACODYL 5 MG TABLET.DR (FP) PO ONE (12:30)
[2023-01-18] MEDS ORDERED: PEG 3350/NA SULF BICARB CL/KCL 4000 ML SOLN.RECON PO ONE (17:00)
[2023-01-18] MEDS: ATORVASTATIN CA 20 MG TABLET (FP) PO SCH (21:24)
[2023-01-19] MEDS ORDERED: METOPROLOL TARTRATE 5 MG/5 ML VIAL IVPUSH ONE ×2 (04:30→10:32)
[2023-01-19 07:08] LABS: HEMATOCRIT 31.6 % (35.4-49); HEMOGLOBIN 10.1 GM/dL (11.7-16.9); MCH 24.7 pg (25.7-33.7); MCHC 32.1 g/dl (32.0-35.9); MEAN PLT VOLUME 8.1 fl (7.5-11.1); MONO % 5.1 % (3.8-10.2); NEUT % 89.9 % (42.8-82.8); PLATELET COUNT 392 10^3/uL (134-434); RDW 21.1 % (11.9-15.9); WHITE BLOOD COUNT 10.7 K/mm3 (4.0-10.0)
[2023-01-19 07:17] LABS: INR 1.16 (0.83-1.09); PROTHROMBIN TIME (PATIENT) 13.4 SEC (9.7-13.0)
[2023-01-19 07:39] LABS: POTASSIUM 3.5 mmol/L (3.5-5.1)
[2023-01-19 07:47] LABS: ALBUMIN 3.4 g/dl (3.4-5.0); CALCIUM 9.6 mg/dL (8.5-10.1); MAGNESIUM 2.1 mg/dL (1.8-2.4)
[2023-01-19 07:48] LABS: BLOOD UREA NITROGEN 31.9 mg/dL (7-18)
[2023-01-19 07:50] LABS: CREATININE 1.3 mg/dL (0.55-1.3)
[2023-01-19 07:52] LABS: BILIRUBIN,TOTAL 0.8 mg/dL (0.2-1); TOT PROT 6.2 g/dl (6.4-8.2)
[2023-01-19] MEDS: FOLIC ACID 1 MG TABLET (FP) PO SCH (09:30)
[2023-01-19] MEDS: MAGNESIUM OXIDE 400 MG TABLET (FP) PO SCH ×2 (09:31→21:15)
[2023-01-19] MEDS: MULTIVITAMINS (DAILY MVI) TABLET (FP) PO SCH (09:32)
[2023-01-19] MEDS: FUROSEMIDE 40 MG/4 ML INJECTABLE VIAL IVPUSH SCH (09:33)
[2023-01-19] MEDS: methylPREDNISolone NA SUCC 40 MG/1 ML VIAL IVPUSH SCH ×2 (09:33→21:15)
[2023-01-19] MEDS: FLUTICASONE/UMECLIDIN/VILANTER(200-62.5-25 TRELEGY ELLIPTA) INAHLER IH SCH (09:33)
[2023-01-19] MEDS: PANTOPRAZOLE 40 MG TABLET PO SCH (09:49)
[2023-01-19] MEDS ORDERED: METOPROLOL TARTRATE 5 MG/5 ML VIAL IVPUSH PRN (10:32)
[2023-01-19] MEDS ORDERED: TETRACAINE/BENZOCAINE/BUTAMBEN 20 GM SPR TP ONE ×2 (14:50→14:55)
[2023-01-19] MEDS: ATORVASTATIN CA 20 MG TABLET (FP) PO SCH (21:15)
[2023-01-20 06:15] VITALS: TEMP 97.6
[2023-01-20 07:52] LABS: BASO % 0.1 % (0-2.0); HEMOGLOBIN 10.5 GM/dL (11.7-16.9); LYMPH % 6.7 % (8-40); MCH 24.6 pg (25.7-33.7); MCHC 31.9 g/dl (32.0-35.9); MEAN CELL VOLUME 77.3 fl (80-96); MEAN PLT VOLUME 8.1 fl (7.5-11.1); MONO % 7.6 % (3.8-10.2); NEUT % 85.6 % (42.8-82.8); PLATELET COUNT 386 10^3/uL (134-434); RBC 4.27 M/mm3 (4.00-5.60); RDW 21.2 % (11.9-15.9); WHITE BLOOD COUNT 7.6 K/mm3 (4.0-10.0)
[2023-01-20] MEDS: FOLIC ACID 1 MG TABLET (FP) PO SCH (09:37)
[2023-01-20] MEDS: MULTIVITAMINS (DAILY MVI) TABLET (FP) PO SCH (09:38)
[2023-01-20] MEDS: PANTOPRAZOLE 40 MG TABLET PO SCH (09:38)
[2023-01-20] MEDS: MAGNESIUM OXIDE 400 MG TABLET (FP) PO SCH (09:38)
[2023-01-20] MEDS: FLUTICASONE/UMECLIDIN/VILANTER(200-62.5-25 TRELEGY ELLIPTA) INAHLER IH SCH (09:39)
[2023-01-20] MEDS: methylPREDNISolone NA SUCC 40 MG/1 ML VIAL IVPUSH SCH (09:39)
[2023-01-20] MEDS ORDERED: FUROSEMIDE 40 MG TABLET (FP) PO SCH (10:00)
[2023-01-20 10:16] VITALS: BP 153/67; PULSE 68; RESP 18
[2023-01-20 10:29] LABS: POTASSIUM 3.4 mmol/L (3.5-5.1)
[2023-01-20 10:31] LABS: ALBUMIN 3.6 g/dl (3.4-5.0); BLOOD UREA NITROGEN 29.5 mg/dL (7-18); CALCIUM 9.9 mg/dL (8.5-10.1); MAGNESIUM 2.5 mg/dL (1.8-2.4)
[2023-01-20 10:35] LABS: CREATININE 1.3 mg/dL (0.55-1.3)
[2023-01-20 10:36] LABS: TOT PROT 6.4 g/dl (6.4-8.2)
[2023-01-20] MEDS ORDERED: POTASSIUM CHLORIDE ORAL LIQUID 20 MEQ/15 ML PO ONE (11:45)
== END 2023-01-20 13:36 | disposition home or self-care (01) | DRG 191 ==
LOC: JER 12:14 → JERBED 15:18 → J4W 21:50
PROVIDERS: ADMIT Internal Medicine; ATTEND Internal Medicine
PROC: 30233N1 Transfusion of Nonautologous Red Blood Cells into Peripheral Vein, Percutaneous Approach (ICD-10-PCS; principal; 2023-01-16)
PROC: 0DB98ZX Excision of Duodenum, Via Natural or Artificial Opening Endoscopic, Diagnostic (ICD-10-PCS; 2023-01-19)
PROC: 0DB68ZX Excision of Stomach, Via Natural or Artificial Opening Endoscopic, Diagnostic (ICD-10-PCS; 2023-01-19)
PROC: 0DB58ZX Excision of Esophagus, Via Natural or Artificial Opening Endoscopic, Diagnostic (ICD-10-PCS; 2023-01-19)
PROC: 0DBP8ZZ Excision of Rectum, Via Natural or Artificial Opening Endoscopic (ICD-10-PCS; 2023-01-19)
DX: J44.1 Chronic obstructive pulmonary disease with (acute) exacerbation (principal); D62 Acute posthemorrhagic anemia; I13.0 Hypertensive heart and chronic kidney disease with heart failure and stage 1 through stage 4 chronic kidney disease, or unspecified chronic kidney disease; I50.42 Chronic combined systolic (congestive) and diastolic (congestive) heart failure; J96.11 Chronic respiratory failure with hypoxia; N17.9 Acute kidney failure, unspecified; E87.1 Hypo-osmolality and hyponatremia; I25.110 Atherosclerotic heart disease of native coronary artery with unstable angina pectoris; D50.9 Iron deficiency anemia, unspecified; N18.31 Chronic kidney disease, stage 3a; I25.10 Atherosclerotic heart disease of native coronary artery without angina pectoris; I73.9 Peripheral vascular disease, unspecified; G89.29 Other chronic pain; R29.6 Repeated falls; I48.0 Paroxysmal atrial fibrillation; K29.70 Gastritis, unspecified, without bleeding; D12.8 Benign neoplasm of rectum; K64.0 First degree hemorrhoids; K57.30 Diverticulosis of large intestine without perforation or abscess without bleeding; K21.9 Gastro-esophageal reflux disease without esophagitis; F10.10 Alcohol abuse, uncomplicated; E87.6 Hypokalemia; G47.30 Sleep apnea, unspecified; Z99.81 Dependence on supplemental oxygen; Z95.5 Presence of coronary angioplasty implant and graft
CPT/HCPCS: 36415; 36430; 36511; 71045-TC-FY; 80053; 81003; 82272; 82728; 82803; 83540; 83550; 83735; 83880; 84484; 85025; 85027; 85610; 85730; 86850; 86900; 86901; 86922; 87086; 93005; 93010; 94761; 97116-GP; 99285-25; P9038; P9058